=== PATIENT | female | born 1960 | race Caucasian/White ===

== ENCOUNTER 2016-10-07 03:03 | Emergency (ER) | payer MEDICAID ==
[~2016-10-07] VITALS: Ht 152.4 cm; Wt 81.6 kg
[2016-10-07 03:10] VITALS: BP_SYST 159
[2016-10-07] MEDS: KETOROLAC TROMETHAMINE 60 MG/2 ML VIAL IM ONE ×2 (04:24→05:10)
[2016-10-07] MEDS ORDERED: IBUPROFEN 800 MG TABLET PO ONE (04:45)
[2016-10-07 05:07] VITALS: BP_SYST 142
== END 2016-10-07 05:07 | disposition home or self-care (01) ==
LOC: SED 03:03
DX: S46.912A Strain of unspecified muscle, fascia and tendon at shoulder and upper arm level, left arm, initial encounter (principal); X58.XXXA Exposure to other specified factors, initial encounter; Y93.89 Activity, other specified; Y99.8 Other external cause status; Y92.89 Other specified places as the place of occurrence of the external cause
CPT/HCPCS: 73030; 99284; J1885

== ENCOUNTER 2017-06-14 16:05 | Inpatient (IN) | payer MEDICAID ==
[2017-06-14] VITALS (8 sets, daily range): BP systolic 91–143
[~2017-06-14] VITALS: Ht 154.9 cm; Wt 83.0 kg
[~2017-06-14 16:05] MED LIST: ALBU2.5V7 INH; BUPR300T46 PO; CARV6.2554 PO; DIVA500T4 PO; LEVA15HF5 INH; METF-509 PO; NICO1PAT11 TP; NICO1PAT23 TD; NICO1PAT25 TP; TRAZ-126 PO
[2017-06-14] MEDS ORDERED: IPRATROPIUM BROM 0.5 MG/2.5 ML VIAL.NEB (ATROVENT) INH ONE (16:30)
[2017-06-14] MEDS ORDERED: KETOROLAC TROMETHAMINE 30 MG VIAL IVP ONE (16:30)
[2017-06-14] MEDS ORDERED: LORazepam 2 MG/ML VIAL (FOR ER USE) IVP ONE (16:30)
[2017-06-14] MEDS ORDERED: LevALBUTEROL HCL 1.25 MG/0.5 ML *CONC.* VIAL.NEB (XOPENEX CONC.) INH ONE (16:30)
[2017-06-14 16:42] LABS: EOSINOPHILS # (AUTO) 0.3 K/uL (0.0-0.4); EOSINOPHILS % (AUTO) 2.4 % (0.0-4.0); HEMATOCRIT 40.6 % (36-48); LYMPHOCYTES # (AUTO) 2.1 K/uL (1.0-5.5); LYMPHOCYTES % (AUTO) 18.9 % (20.5-51.5); MEAN CORPUSCULAR HEMOGLOBIN 29 pg (27-31); MEAN CORPUSCULAR HGB CONC 32 % (32-36); MEAN CORPUSCULAR VOLUME 92 fL (79.0-98.0); MONOCYTES # (AUTO) 0.6 K/uL (0.0-1.0); MONOCYTES % (AUTO) 5.2 % (1.7-9.3); PLATELET COUNT (AUTO) 646 K/uL (130-430); RED BLOOD CELL COUNT(AUTO) 4.42 MIL/uL (4.2-6.2); RED CELL DISTRIBUTION WIDTH 14.4 % (9.0-15.0)
[2017-06-14] MEDS ORDERED: FURO40SO5 PO (16:42)
[2017-06-14] MEDS ORDERED: ONDA8TAB9 PO (16:42)
[2017-06-14] MEDS ORDERED: TRAM50TA92 PO (16:42)
[2017-06-14] MEDS ORDERED: ENAL10TA PO (16:42)
[2017-06-14] MEDS ORDERED: DOXY100T2 PO (16:42)
[2017-06-14 16:46] LABS: BASOPHILS % (AUTO) 0.9 % (0.0-2.0); NEUTROPHILS % (AUTO) 72.6 % (40.0-70.0)
[2017-06-14 16:56] LABS: CALCIUM 9.2 mg/dL (8.4-11.0); CREATININE 1.18 mg/dL (0.55-1.30); POTASSIUM 3.7 mmol/L (3.5-5.1)
[2017-06-14 17:00] LABS: INR 1.2 (0.8-1.2)
[2017-06-14 17:01] LABS: TOTAL BILIRUBIN 0.2 mg/dL (0.0-1.0)
[2017-06-14] MEDS ORDERED: HEPARIN SODIUM,PORCINE 5000 UNITS/ML VIAL IV ONE (18:15)
[2017-06-14] MEDS ORDERED: HEPARIN 25,000 UNITS/D5W 250ML 250 ML IV PRN (18:15)
[2017-06-14] MEDS ORDERED: HEPARIN SODIUM,PORCINE 5000 UNITS/ML VIAL IVP ONE (18:45)
[2017-06-14] MEDS ORDERED: IOHEXOL 350 mgI/mL, 150 ML INFUS..BTL IV ONE (18:46)
[2017-06-14] MEDS ORDERED: traMADol HCL HCL 50 MG TABLET (ULTRAM) PO PRN (20:00)
[2017-06-14] MEDS ORDERED: DEXTROSE 50% JECT 50 ML DISP.SYRIN IVP PRN (20:30)
[2017-06-14] MEDS ORDERED: ACETAMINOPHEN 325 MG TABLET PO PRN (20:30)
[2017-06-14] MEDS: ONDANSETRON 4 MG ODT TAB PO SCH (21:00)
[2017-06-14] MEDS ORDERED: PIPERACILLIN/TAZO 3.375/DEX-IS 50 ML IV ONE (21:00)
[2017-06-14] MEDS ORDERED: IPRATROPIUM/ALBUTEROL SULFATE 3 ML AMPUL.NEB INH ONE (21:00)
[2017-06-14] MEDS ORDERED: CARVEDILOL 6.25 MG TABLET (COREG) PO SCH (21:00)
[2017-06-14] MEDS ORDERED: FUROSEMIDE 20 MG/2 ML VIAL IVP SCH (21:00)
[2017-06-14] MEDS: TEMAZEPAM 15 MG CAPSULE PO PRN (21:08)
[2017-06-14] MEDS: ENALAPRIL MALEATE 10 MG TABLET (VASOTEC) PO SCH (21:09)
[2017-06-14] MEDS ORDERED: PIPERACILLIN/TAZOBACTAM 3.375 GM/VIAL (ZOSYN) IV ONE (21:09)
[2017-06-14] MEDS ORDERED: AZITHROMYCIN 500 MG/VIAL (ZITHROMAX) IV ONE (21:10)
[2017-06-14] MEDS: ONDANSETRON HCL 4 MG/2 ML VIAL IVP PRN (21:11)
[2017-06-14] MEDS: ENOXAPARIN SODIUM 40 MG/0.4 ML SYRINGE SUBCUT SCH (21:12)
[2017-06-14] MEDS: AZITHROMYCIN 500 MG in NS 250 ML IV SCH (21:26)
[2017-06-14] MEDS: INSULIN REGULAR, HUMAN 100 UNITS/ML, 10 ML VIAL (novoLIN R) SUBCUT PRN (21:52)
[2017-06-14] MEDS: IPRATROPIUM/ALBUTEROL SULFATE 3 ML AMPUL.NEB INH PRN (22:42)
[2017-06-15] VITALS (21 sets, daily range): BP systolic 76–147
[2017-06-15] MEDS: IPRATROPIUM/ALBUTEROL SULFATE 3 ML AMPUL.NEB INH PRN (00:53)
[2017-06-15] MEDS: MORPHINE 2 MG/ML INJ. SYRINGE IVP PRN (01:08)
[2017-06-15] MEDS: MORPHINE 4 MG/ML INJ. SYRINGE IVP PRN (03:22)
[2017-06-15] MEDS: PIPERACILLIN/TAZO 3.375/DEX-IS 50 ML IV SCH ×3 (05:17→18:12)
[2017-06-15 06:52] LABS: BASOPHILS # (AUTO) 0.1 K/uL (0.0-0.2); EOSINOPHILS # (AUTO) 0.2 K/uL (0.0-0.4); EOSINOPHILS % (AUTO) 2.4 % (0.0-4.0); HEMATOCRIT 37.9 % (36-48); HEMOGLOBIN 12.2 g/dL (12.0-16.0); LYMPHOCYTES # (AUTO) 1.5 K/uL (1.0-5.5); LYMPHOCYTES % (AUTO) 14.7 % (20.5-51.5); MEAN CORPUSCULAR HEMOGLOBIN 30 pg (27-31); MEAN CORPUSCULAR HGB CONC 32 % (32-36); MEAN CORPUSCULAR VOLUME 93 fL (79.0-98.0); MONOCYTES # (AUTO) 0.7 K/uL (0.0-1.0); MONOCYTES % (AUTO) 7.4 % (1.7-9.3); NEUTROPHILS # (AUTO) 7.5 K/uL (1.8-7.7); NEUTROPHILS % (AUTO) 74.5 % (40.0-70.0); PLATELET COUNT (AUTO) 583 K/uL (130-430); RED BLOOD CELL COUNT(AUTO) 4.09 MIL/uL (4.2-6.2); RED CELL DISTRIBUTION WIDTH 14.5 % (9.0-15.0)
[2017-06-15 06:56] LABS: CALCIUM 8.7 mg/dL (8.4-11.0); CREATININE 1.28 mg/dL (0.55-1.30); POTASSIUM 3.8 mmol/L (3.5-5.1)
[2017-06-15 07:06] LABS: ALBUMIN 2.6 g/dL (3.4-4.8); TOTAL BILIRUBIN 0.2 mg/dL (0.0-1.0)
[2017-06-15] MEDS: IPRATROPIUM/ALBUTEROL SULFATE 3 ML AMPUL.NEB INH SCH ×5 (09:17→23:53)
[2017-06-15] MEDS: CARVEDILOL 12.5 MG TABLET (COREG) PO SCH ×2 (09:40→21:00)
[2017-06-15] MEDS: ENALAPRIL MALEATE 10 MG TABLET (VASOTEC) PO SCH ×2 (09:40→21:00)
[2017-06-15] MEDS: buPROPion HCL 150 MG XL TAB PO SCH ×2 (09:41→09:45)
[2017-06-15] MEDS: ENOXAPARIN SODIUM 40 MG/0.4 ML SYRINGE SUBCUT SCH (09:41)
[2017-06-15] MEDS: ONDANSETRON 4 MG ODT TAB PO SCH ×3 (09:41→21:00)
[2017-06-15] MEDS: FUROSEMIDE 20 MG/2 ML VIAL IVP SCH ×2 (10:23→21:00)
[2017-06-15] MEDS ORDERED: LORazepam 2 MG/ML VIAL IVP ONE (10:45)
[2017-06-15] MEDS ORDERED: ENOXAPARIN SODIUM 40 MG/0.4 ML SYRINGE SUBCUT ONE (15:00)
[2017-06-15] MEDS: AZITHROMYCIN 500 MG in NS 250 ML IV SCH (20:58)
[2017-06-15] MEDS: TEMAZEPAM 15 MG CAPSULE PO PRN (21:04)
[2017-06-15] MEDS ORDERED: LORazepam 2 MG/ML VIAL IM ONE (22:30)
[2017-06-15] MEDS ORDERED: EPINEPHrine JECT 1 MG/10 ML SYR IVP ONE ×3 (22:30→22:42)
[2017-06-15] MEDS ORDERED: SODIUM BICARBONATE 8.4% JECT 50 MEQ/50 ML SYRINGE IVP ONE ×2 (22:33→22:43)
[2017-06-15] MEDS ORDERED: CALCIUM CHLORIDE 1 GM/10 ML DISP.SYRIN (14 mEq Ca++/SYR) IV ONE (22:43)
[2017-06-15 23:13] LABS: BASOPHILS # (AUTO) 0.2 K/uL (0.0-0.2); BASOPHILS % (AUTO) 1.2 % (0.0-2.0); EOSINOPHILS # (AUTO) 0.3 K/uL (0.0-0.4); EOSINOPHILS % (AUTO) 2.5 % (0.0-4.0); HEMATOCRIT 38.5 % (36-48); HEMOGLOBIN 12.1 g/dL (12.0-16.0); LYMPHOCYTES # (AUTO) 5.3 K/uL (1.0-5.5); LYMPHOCYTES % (AUTO) 38.2 % (20.5-51.5); MEAN CORPUSCULAR HEMOGLOBIN 30 pg (27-31); MEAN CORPUSCULAR HGB CONC 32 % (32-36); MEAN CORPUSCULAR VOLUME 95 fL (79.0-98.0); MONOCYTES # (AUTO) 0.5 K/uL (0.0-1.0); MONOCYTES % (AUTO) 3.7 % (1.7-9.3); NEUTROPHILS # (AUTO) 7.6 K/uL (1.8-7.7); NEUTROPHILS % (AUTO) 54.4 % (40.0-70.0); PLATELET COUNT (AUTO) 223 K/uL (130-430); RED BLOOD CELL COUNT(AUTO) 4.05 MIL/uL (4.2-6.2); RED CELL DISTRIBUTION WIDTH 14.9 % (9.0-15.0); WHITE BLOOD COUNT (AUTO) 13.9 K/uL (4.8-10.8)
[2017-06-15 23:23] LABS: CALCIUM 10.2 mg/dL (8.4-11.0); CREATININE 1.66 mg/dL (0.55-1.30); POTASSIUM 4.5 mmol/L (3.5-5.1)
[2017-06-15 23:29] LABS: ALBUMIN 2.3 g/dL (3.4-4.8); TOTAL BILIRUBIN 0.2 mg/dL (0.0-1.0)
[2017-06-15] MEDS: NOREPINEPHRINE 4 MG/4 ML VIAL IV ONE (23:40)
[2017-06-16] VITALS (31 sets, daily range): BP systolic 68–156
[2017-06-16 00:16] LABS: APPEARANCE,SPUN,BODY FLUID CLEAR (CLEAR); BF APPEARANCE UNSPUN CLOUDY (CLEAR); BODY FLUID COLOR RED (LT YELLOW); BODY FLUID SOURCE/ TYPE PLEURAL; SOURCE/TYPE ,BODY FLUID PLEURAL
[2017-06-16 00:18] LABS: RBC, BODY FLUID 145600 /uL; WBC, BODY FLUID 929 /uL
[2017-06-16 00:19] LABS: LYMPHOCYTES, BODY FLUID 90 %; MONOCYTES,BODY FLUID 8 %; NEUTROPHIL, BODY FLUID 2 %
[2017-06-16] MEDS: MORPHINE 4 MG/ML INJ. SYRINGE IVP PRN (00:19)
[2017-06-16 00:29] LABS: BODY FLUID TOTAL VOLUME 1000 mL
[2017-06-16] MEDS: NOREPINEPHRINE 4 MG/4 ML VIAL IV ONE (00:59)
[2017-06-16] MEDS: D5/0.45 NS 1,000 ML IV SCH ×4 (01:00→14:31)
[2017-06-16 01:09] LABS: POTASSIUM 4.6 mmol/L (3.5-5.1)
[2017-06-16 01:10] LABS: ALBUMIN 2.2 g/dL (3.4-4.8); CALCIUM 10.2 mg/dL (8.4-11.0); CREATININE 1.69 mg/dL (0.55-1.30); TOTAL BILIRUBIN 0.2 mg/dL (0.0-1.0)
[2017-06-16 01:11] LABS: THYROID STIMULATING HORMONE 20.83 uIu/mL (0.34-4.82)
[2017-06-16] MEDS ORDERED: LORazepam 2 MG/ML VIAL ONE (01:21)
[2017-06-16] MEDS: PIPERACILLIN/TAZO 3.375/DEX-IS 50 ML IV SCH ×2 (01:27→05:42)
[2017-06-16] MEDS: LORazepam 2 MG/ML VIAL IVP PRN ×2 (03:12→05:42)
[2017-06-16] MEDS: IPRATROPIUM/ALBUTEROL SULFATE 3 ML AMPUL.NEB INH SCH ×5 (05:01→23:34)
[2017-06-16] MEDS ORDERED: NOREPINEPHRINE 4 MG/4 ML VIAL IV ONE (06:15)
[2017-06-16 06:32] LABS: BASOPHILS % (AUTO) 0.1 % (0.0-2.0); EOSINOPHILS # (AUTO) 0.1 K/uL (0.0-0.4); EOSINOPHILS % (AUTO) 0.4 % (0.0-4.0); HEMATOCRIT 38.5 % (36-48); HEMOGLOBIN 12.4 g/dL (12.0-16.0); LYMPHOCYTES # (AUTO) 0.9 K/uL (1.0-5.5); LYMPHOCYTES % (AUTO) 4.5 % (20.5-51.5); MEAN CORPUSCULAR HEMOGLOBIN 29 pg (27-31); MEAN CORPUSCULAR HGB CONC 32 % (32-36); MEAN CORPUSCULAR VOLUME 92 fL (79.0-98.0); MONOCYTES # (AUTO) 0.4 K/uL (0.0-1.0); MONOCYTES % (AUTO) 2.1 % (1.7-9.3); NEUTROPHILS # (AUTO) 19.4 K/uL (1.8-7.7); NEUTROPHILS % (AUTO) 92.9 % (40.0-70.0); PLATELET COUNT (AUTO) 502 K/uL (130-430); RED BLOOD CELL COUNT(AUTO) 4.21 MIL/uL (4.2-6.2); RED CELL DISTRIBUTION WIDTH 14.6 % (9.0-15.0); WHITE BLOOD COUNT (AUTO) 20.8 K/uL (4.8-10.8)
[2017-06-16] MEDS: INSULIN REGULAR, HUMAN 100 UNITS/ML, 10 ML VIAL (novoLIN R) SUBCUT PRN ×4 (06:53→20:57)
[2017-06-16 07:48] LABS: CALCIUM 8.9 mg/dL (8.4-11.0); CREATININE 2.15 mg/dL (0.55-1.30); POTASSIUM 3.2 mmol/L (3.5-5.1)
[2017-06-16 08:11] LABS: ALBUMIN 2.4 g/dL (3.4-4.8); TOTAL BILIRUBIN 0.6 mg/dL (0.0-1.0)
[2017-06-16] MEDS ORDERED: ENOXAPARIN SODIUM 40 MG/0.4 ML SYRINGE SUBCUT SCH (09:00)
[2017-06-16] MEDS: FUROSEMIDE 20 MG/2 ML VIAL IVP SCH ×2 (09:00→20:55)
[2017-06-16] MEDS: ENALAPRIL MALEATE 10 MG TABLET (VASOTEC) PO SCH ×2 (09:00→20:55)
[2017-06-16] MEDS: CARVEDILOL 12.5 MG TABLET (COREG) PO SCH ×2 (09:00→20:55)
[2017-06-16] MEDS: ONDANSETRON 4 MG ODT TAB PO SCH ×3 (09:00→21:00)
[2017-06-16 10:13] LABS: BODY FLUID GLUCOSE 124 mg/dL
[2017-06-16] MEDS ORDERED: POTASSIUM CHLORIDE 40 MEQ in 0.45% NS 250 ML IV ONE (10:15)
[2017-06-16] MEDS ORDERED: POTASSIUM CHLORIDE 40 MEQ, LIDOCAINE JECT 2% PF 100 MG 50 MG in NS 250 ML IV ONE (10:15)
[2017-06-16] MEDS ORDERED: ETOMIDATE 20 MG/ 10 ML VIAL (AMIDATE) IVP ONE (10:40)
[2017-06-16] MEDS ORDERED: ROCURONIUM BROMIDE 10 MG/ML (ZEMURON) IV ONE (10:40)
[2017-06-16 10:59] LABS: BODY FLUID TOTAL PROTEIN 3.9 g/dL
[2017-06-16 11:00] LABS: METHAMPHETAMINES SCREEN,URINE POSITIVE (NEG <=500)
[2017-06-16 11:01] LABS: BARBITURATE, URINE NEGATIVE (NEG <=200); BENZODIAZEPINE, URINE POSITIVE (NEG <=150); CANNABINOID, URINE NEGATIVE (NEG <=50); COCAINE, URINE NEGATIVE (NEG <=150); OPIATE, URINE POSITIVE (NEG <=100); PHENCYCLIDINE SCREEN,URINE NEGATIVE (NEG <=25); UR TRICYCLIC ANTIDEPRESSANTS NEGATIVE (NEG <=300); URINE AMPHETAMINE NEGATIVE (NEG <=500); URINE METHADONE NEGATIVE (NEG <=200); URINE OXYCODONE SCREEN NEGATIVE (NEG <=100); URINE PROPOXYPHENE SCREEN NEGATIVE (NEG <=300)
[2017-06-16] MEDS: POTASSIUM CHLORIDE 40 MEQ in NS 250 ML IV SCH ×2 (13:30→17:10)
[2017-06-16 16:27] LABS: CALCIUM 8.5 mg/dL (8.4-11.0); CREATININE 2.39 mg/dL (0.55-1.30); POTASSIUM 4.3 mmol/L (3.5-5.1)
[2017-06-16] MEDS: MORPHINE 2 MG/ML INJ. SYRINGE IVP PRN (19:13)
[2017-06-16] MEDS: ENOXAPARIN SODIUM 30 MG/0.3 ML SYRINGE SUBCUT SCH (20:56)
[2017-06-16] MEDS: AZITHROMYCIN 500 MG in NS 250 ML IV SCH (21:01)
[2017-06-16] MEDS: NOREPINEPHRINE BITARTRATE 4 MG in NS 246 ML IV PRN (23:31)
[2017-06-17] VITALS (33 sets, daily range): BP systolic 93–150
[2017-06-17] MEDS: D5/0.45 NS 1,000 ML IV SCH ×5 (00:57→18:38)
[2017-06-17] MEDS ORDERED: NOREPINEPHRINE 4 MG/4 ML VIAL IV ONE ×2 (02:11→05:58)
[2017-06-17] MEDS: IPRATROPIUM/ALBUTEROL SULFATE 3 ML AMPUL.NEB INH SCH ×5 (03:29→23:00)
[2017-06-17] MEDS: INSULIN REGULAR, HUMAN 100 UNITS/ML, 10 ML VIAL (novoLIN R) SUBCUT PRN ×3 (06:11→22:32)
[2017-06-17 07:15] LABS: BASOPHILS % (AUTO) 0.1 % (0.0-2.0); EOSINOPHILS # (AUTO) 0.1 K/uL (0.0-0.4); EOSINOPHILS % (AUTO) 0.4 % (0.0-4.0); HEMOGLOBIN 11.3 g/dL (12.0-16.0); LYMPHOCYTES # (AUTO) 1.5 K/uL (1.0-5.5); LYMPHOCYTES % (AUTO) 7.7 % (20.5-51.5); MEAN CORPUSCULAR HEMOGLOBIN 31 pg (27-31); MEAN CORPUSCULAR HGB CONC 33 % (32-36); MEAN CORPUSCULAR VOLUME 92 fL (79.0-98.0); MONOCYTES # (AUTO) 0.9 K/uL (0.0-1.0); MONOCYTES % (AUTO) 4.5 % (1.7-9.3); NEUTROPHILS # (AUTO) 16.9 K/uL (1.8-7.7); NEUTROPHILS % (AUTO) 87.3 % (40.0-70.0); PLATELET COUNT (AUTO) 423 K/uL (130-430); RED CELL DISTRIBUTION WIDTH 14.4 % (9.0-15.0); WHITE BLOOD COUNT (AUTO) 19.4 K/uL (4.8-10.8)
[2017-06-17 07:19] LABS: CREATININE 2.6 mg/dL (0.55-1.30); POTASSIUM 4.1 mmol/L (3.5-5.1)
[2017-06-17 07:36] LABS: TOTAL BILIRUBIN 0.5 mg/dL (0.0-1.0)
[2017-06-17] MEDS: LORazepam 2 MG/ML VIAL IVP PRN ×6 (09:46→20:09)
[2017-06-17] MEDS: ONDANSETRON 4 MG ODT TAB PO SCH ×3 (09:55→22:36)
[2017-06-17] MEDS: ENALAPRIL MALEATE 10 MG TABLET (VASOTEC) PO SCH ×2 (09:56→22:34)
[2017-06-17] MEDS: buPROPion HCL 150 MG XL TAB PO SCH (09:56)
[2017-06-17] MEDS: CARVEDILOL 12.5 MG TABLET (COREG) PO SCH ×2 (09:57→22:34)
[2017-06-17] MEDS: FUROSEMIDE 20 MG/2 ML VIAL IVP SCH ×2 (09:59→22:33)
[2017-06-17] MEDS: MORPHINE 2 MG/ML INJ. SYRINGE IVP PRN ×2 (10:15→15:48)
[2017-06-17] MEDS: NOREPINEPHRINE BITARTRATE 4 MG in NS 246 ML IV PRN ×2 (11:26→18:38)
[2017-06-17 19:31] LABS: CALCIUM 8.2 mg/dL (8.4-11.0); CREATININE 2.42 mg/dL (0.55-1.30); POTASSIUM 4.2 mmol/L (3.5-5.1)
[2017-06-17] MEDS: MORPHINE 4 MG/ML INJ. SYRINGE IVP PRN (20:29)
[2017-06-17] MEDS: ENOXAPARIN SODIUM 30 MG/0.3 ML SYRINGE SUBCUT SCH (22:35)
[2017-06-17] MEDS: AZITHROMYCIN 500 MG in NS 250 ML IV SCH (22:36)
[2017-06-18] VITALS (34 sets, daily range): BP systolic 92–148
[2017-06-18] MEDS: LORazepam 2 MG/ML VIAL IVP PRN ×5 (00:02→20:53)
[2017-06-18] MEDS: NOREPINEPHRINE BITARTRATE 4 MG in NS 246 ML IV PRN ×2 (00:36→10:22)
[2017-06-18] MEDS: D5/0.45 NS 1,000 ML IV SCH ×2 (02:19→08:03)
[2017-06-18] MEDS: IPRATROPIUM/ALBUTEROL SULFATE 3 ML AMPUL.NEB INH SCH ×6 (03:00→22:58)
[2017-06-18 06:39] LABS: BASOPHILS # (AUTO) 0.2 K/uL (0.0-0.2); BASOPHILS % (AUTO) 0.9 % (0.0-2.0); EOSINOPHILS # (AUTO) 0.3 K/uL (0.0-0.4); EOSINOPHILS % (AUTO) 1.5 % (0.0-4.0); HEMATOCRIT 31.7 % (36-48); HEMOGLOBIN 10.4 g/dL (12.0-16.0); LYMPHOCYTES # (AUTO) 1.7 K/uL (1.0-5.5); LYMPHOCYTES % (AUTO) 9.7 % (20.5-51.5); MEAN CORPUSCULAR HEMOGLOBIN 31 pg (27-31); MEAN CORPUSCULAR HGB CONC 33 % (32-36); MEAN CORPUSCULAR VOLUME 92 fL (79.0-98.0); MONOCYTES # (AUTO) 0.7 K/uL (0.0-1.0); MONOCYTES % (AUTO) 4.3 % (1.7-9.3); NEUTROPHILS # (AUTO) 14.2 K/uL (1.8-7.7); NEUTROPHILS % (AUTO) 83.6 % (40.0-70.0); PLATELET COUNT (AUTO) 368 K/uL (130-430); RED BLOOD CELL COUNT(AUTO) 3.43 MIL/uL (4.2-6.2); RED CELL DISTRIBUTION WIDTH 14.4 % (9.0-15.0); WHITE BLOOD COUNT (AUTO) 17.1 K/uL (4.8-10.8)
[2017-06-18 07:01] LABS: ALBUMIN 1.9 g/dL (3.4-4.8); CREATININE 2.35 mg/dL (0.55-1.30); PHOSPHORUS 4.1 mg/dL (2.7-4.5); POTASSIUM 3.9 mmol/L (3.5-5.1); TOTAL BILIRUBIN 0.4 mg/dL (0.0-1.0)
[2017-06-18] MEDS: ENALAPRIL MALEATE 10 MG TABLET (VASOTEC) PO SCH ×2 (08:02→21:00)
[2017-06-18] MEDS: CARVEDILOL 12.5 MG TABLET (COREG) PO SCH ×2 (08:03→21:00)
[2017-06-18] MEDS ORDERED: FUROSEMIDE 20 MG/2 ML VIAL ONE (08:44)
[2017-06-18] MEDS: FUROSEMIDE 20 MG/2 ML VIAL IVP SCH ×2 (08:44→21:44)
[2017-06-18] MEDS: ONDANSETRON 4 MG ODT TAB PO SCH ×3 (08:45→21:00)
[2017-06-18] MEDS ORDERED: FUROSEMIDE 20 MG/2 ML VIAL IVP SCH (13:45)
[2017-06-18] MEDS: NACL 0.9% 1,000 ML IV SCH (14:41)
[2017-06-18] MEDS: MORPHINE 2 MG/ML INJ. SYRINGE IVP PRN (16:49)
[2017-06-18] MEDS: ENOXAPARIN SODIUM 30 MG/0.3 ML SYRINGE SUBCUT SCH (21:43)
[2017-06-18] MEDS: AZITHROMYCIN 500 MG in NS 250 ML IV SCH (21:56)
[2017-06-18] MEDS: MORPHINE 4 MG/ML INJ. SYRINGE IVP PRN (22:34)
[2017-06-18] MEDS: ONDANSETRON HCL 4 MG/2 ML VIAL IVP PRN (22:34)
[2017-06-19] VITALS (31 sets, daily range): BP systolic 106–174
[2017-06-19] MEDS: LORazepam 2 MG/ML VIAL IVP PRN ×6 (02:37→23:29)
[2017-06-19] MEDS: MORPHINE 2 MG/ML INJ. SYRINGE IVP PRN (03:52)
[2017-06-19] MEDS ORDERED: IPRATROPIUM/ALBUTEROL SULFATE 3 ML AMPUL.NEB ONE (04:25)
[2017-06-19] MEDS: IPRATROPIUM/ALBUTEROL SULFATE 3 ML AMPUL.NEB INH SCH ×6 (04:26→23:18)
[2017-06-19 07:12] LABS: BASOPHILS # (AUTO) 0.1 K/uL (0.0-0.2); BASOPHILS % (AUTO) 0.5 % (0.0-2.0); EOSINOPHILS # (AUTO) 0.3 K/uL (0.0-0.4); EOSINOPHILS % (AUTO) 1.8 % (0.0-4.0); HEMATOCRIT 30.2 % (36-48); LYMPHOCYTES # (AUTO) 1.8 K/uL (1.0-5.5); LYMPHOCYTES % (AUTO) 12.2 % (20.5-51.5); MEAN CORPUSCULAR HEMOGLOBIN 30 pg (27-31); MEAN CORPUSCULAR HGB CONC 33 % (32-36); MEAN CORPUSCULAR VOLUME 91 fL (79.0-98.0); MONOCYTES # (AUTO) 0.8 K/uL (0.0-1.0); MONOCYTES % (AUTO) 5.8 % (1.7-9.3); NEUTROPHILS # (AUTO) 11.5 K/uL (1.8-7.7); PLATELET COUNT (AUTO) 289 K/uL (130-430); RED BLOOD CELL COUNT(AUTO) 3.32 MIL/uL (4.2-6.2); RED CELL DISTRIBUTION WIDTH 14.3 % (9.0-15.0); WHITE BLOOD COUNT (AUTO) 14.5 K/uL (4.8-10.8)
[2017-06-19 07:14] LABS: ALBUMIN 1.8 g/dL (3.4-4.8); CALCIUM 8.3 mg/dL (8.4-11.0); CREATININE 2.1 mg/dL (0.55-1.30); POTASSIUM 3.6 mmol/L (3.5-5.1); TOTAL BILIRUBIN 0.4 mg/dL (0.0-1.0)
[2017-06-19] MEDS: ENALAPRIL MALEATE 10 MG TABLET (VASOTEC) PO SCH ×2 (09:04→20:41)
[2017-06-19] MEDS: FUROSEMIDE 20 MG/2 ML VIAL IVP SCH ×2 (09:05→20:40)
[2017-06-19] MEDS: NACL 0.9% 1,000 ML IV SCH (09:05)
[2017-06-19] MEDS: ONDANSETRON 4 MG ODT TAB PO SCH ×3 (09:05→20:41)
[2017-06-19] MEDS ORDERED: CARVEDILOL 12.5 MG TABLET (COREG) ONE (10:08)
[2017-06-19] MEDS: CARVEDILOL 12.5 MG TABLET (COREG) PO SCH ×2 (10:09→20:41)
[2017-06-19 11:38] LABS: NEUTROPHILS % (AUTO) 79.7 % (40.0-70.0)
[2017-06-19] MEDS: ENOXAPARIN SODIUM 30 MG/0.3 ML SYRINGE SUBCUT SCH (20:42)
[2017-06-20] VITALS (33 sets, daily range): BP systolic 115–185
[2017-06-20] MEDS: LORazepam 2 MG/ML VIAL IVP PRN ×5 (00:29→23:39)
[2017-06-20] MEDS: IPRATROPIUM/ALBUTEROL SULFATE 3 ML AMPUL.NEB INH SCH ×6 (03:57→23:15)
[2017-06-20] MEDS: NACL 0.9% 1,000 ML IV SCH (05:52)
[2017-06-20 06:57] LABS: BASOPHILS # (AUTO) 0.1 K/uL (0.0-0.2); BASOPHILS % (AUTO) 0.6 % (0.0-2.0); EOSINOPHILS # (AUTO) 0.5 K/uL (0.0-0.4); EOSINOPHILS % (AUTO) 3.7 % (0.0-4.0); HEMATOCRIT 32.8 % (36-48); HEMOGLOBIN 10.8 g/dL (12.0-16.0); LYMPHOCYTES # (AUTO) 1.3 K/uL (1.0-5.5); LYMPHOCYTES % (AUTO) 10.4 % (20.5-51.5); MEAN CORPUSCULAR HEMOGLOBIN 30 pg (27-31); MEAN CORPUSCULAR HGB CONC 33 % (32-36); MEAN CORPUSCULAR VOLUME 91 fL (79.0-98.0); MONOCYTES # (AUTO) 0.8 K/uL (0.0-1.0); NEUTROPHILS % (AUTO) 79.3 % (40.0-70.0); PLATELET COUNT (AUTO) 343 K/uL (130-430); RED CELL DISTRIBUTION WIDTH 14.6 % (9.0-15.0); WHITE BLOOD COUNT (AUTO) 12.7 K/uL (4.8-10.8)
[2017-06-20 07:03] LABS: CALCIUM 8.9 mg/dL (8.4-11.0); CREATININE 1.95 mg/dL (0.55-1.30); POTASSIUM 3.3 mmol/L (3.5-5.1)
[2017-06-20 07:15] LABS: TOTAL BILIRUBIN 0.3 mg/dL (0.0-1.0)
[2017-06-20] MEDS: ENALAPRIL MALEATE 10 MG TABLET (VASOTEC) PO SCH ×2 (08:55→20:56)
[2017-06-20] MEDS: FUROSEMIDE 20 MG/2 ML VIAL IVP SCH ×2 (08:55→20:55)
[2017-06-20] MEDS: CARVEDILOL 12.5 MG TABLET (COREG) PO SCH ×2 (08:55→20:56)
[2017-06-20] MEDS: ONDANSETRON 4 MG ODT TAB PO SCH ×3 (08:56→21:03)
[2017-06-20] MEDS ORDERED: POTASSIUM CHLORIDE 20 MEQ/PKT PACKET NG ONE (09:45)
[2017-06-20] MEDS ORDERED: POTASSIUM CHLORIDE 20 MEQ/PKT PACKET PO ONE (14:15)
[2017-06-20] MEDS: POTASSIUM CHLORIDE 20 MEQ/PKT PACKET PO SCH (20:54)
[2017-06-20] MEDS: ENOXAPARIN SODIUM 30 MG/0.3 ML SYRINGE SUBCUT SCH (20:55)
[2017-06-20] MEDS: ONDANSETRON HCL 4 MG/2 ML VIAL IVP PRN (21:00)
[2017-06-20] MEDS: MORPHINE 4 MG/ML INJ. SYRINGE IVP PRN (21:16)
[2017-06-20] MEDS ORDERED: ACETAMINOPHEN 650 MG/20.3 ML UDC ONE (22:58)
[2017-06-21] VITALS (31 sets, daily range): BP systolic 73–159
[2017-06-21] MEDS: NACL 0.9% 1,000 ML IV SCH ×2 (01:15→08:12)
[2017-06-21] MEDS: IPRATROPIUM/ALBUTEROL SULFATE 3 ML AMPUL.NEB INH SCH ×6 (03:46→23:20)
[2017-06-21] MEDS: LORazepam 2 MG/ML VIAL IVP PRN ×3 (03:51→20:38)
[2017-06-21] MEDS: ACETAMINOPHEN 650 MG/20.3 ML UDC NG PRN (05:33)
[2017-06-21 05:47] LABS: BASOPHILS # (AUTO) 0.1 K/uL (0.0-0.2); BASOPHILS % (AUTO) 0.6 % (0.0-2.0); EOSINOPHILS # (AUTO) 0.3 K/uL (0.0-0.4); EOSINOPHILS % (AUTO) 2.3 % (0.0-4.0); HEMATOCRIT 30.8 % (36-48); HEMOGLOBIN 9.9 g/dL (12.0-16.0); LYMPHOCYTES # (AUTO) 1.4 K/uL (1.0-5.5); LYMPHOCYTES % (AUTO) 11.4 % (20.5-51.5); MEAN CORPUSCULAR HEMOGLOBIN 29 pg (27-31); MEAN CORPUSCULAR HGB CONC 32 % (32-36); MEAN CORPUSCULAR VOLUME 91 fL (79.0-98.0); MONOCYTES # (AUTO) 0.8 K/uL (0.0-1.0); MONOCYTES % (AUTO) 6.2 % (1.7-9.3); NEUTROPHILS # (AUTO) 9.7 K/uL (1.8-7.7); NEUTROPHILS % (AUTO) 79.5 % (40.0-70.0); PLATELET COUNT (AUTO) 350 K/uL (130-430); RED BLOOD CELL COUNT(AUTO) 3.37 MIL/uL (4.2-6.2); RED CELL DISTRIBUTION WIDTH 14.6 % (9.0-15.0); WHITE BLOOD COUNT (AUTO) 12.3 K/uL (4.8-10.8)
[2017-06-21 05:49] LABS: CALCIUM 7.8 mg/dL (8.4-11.0); CREATININE 1.74 mg/dL (0.55-1.30); PHOSPHORUS 3.4 mg/dL (2.7-4.5); POTASSIUM 3.3 mmol/L (3.5-5.1)
[2017-06-21] MEDS ORDERED: NS 500 ML IV ONE ×2 (06:18→07:45)
[2017-06-21] MEDS ORDERED: NOREPINEPHRINE BITARTRATE 4 MG in NS 246 ML IV PRN (06:30)
[2017-06-21] MEDS: CARVEDILOL 12.5 MG TABLET (COREG) PO SCH ×2 (08:13→20:07)
[2017-06-21] MEDS: ENALAPRIL MALEATE 10 MG TABLET (VASOTEC) PO SCH ×2 (08:13→20:07)
[2017-06-21] MEDS: POTASSIUM CHLORIDE 20 MEQ/PKT PACKET PO SCH (08:13)
[2017-06-21] MEDS: ONDANSETRON 4 MG ODT TAB PO SCH ×3 (08:14→20:07)
[2017-06-21] MEDS: MORPHINE 2 MG/ML INJ. SYRINGE IVP PRN (12:15)
[2017-06-21] MEDS: MORPHINE 4 MG/ML INJ. SYRINGE IVP PRN (13:45)
[2017-06-21] MEDS ORDERED: MENTHOL/ZINC OXIDE 113 GM OINT. TP PRN (17:30)
[2017-06-21] MEDS: MENTHOL/ZINC OXIDE 113 GM OINT. TP SCH ×2 (18:04→20:08)
[2017-06-21] MEDS ORDERED: ETOMIDATE 20 MG/ 10 ML VIAL (AMIDATE) IVP ONE (19:45)
[2017-06-21] MEDS ORDERED: ROCURONIUM BROMIDE 10 MG/ML (ZEMURON) IV ONE (19:45)
[2017-06-21] MEDS: POTASSIUM CHLORIDE 20 MEQ/PKT PACKET NG SCH (20:06)
[2017-06-21] MEDS: ENOXAPARIN SODIUM 30 MG/0.3 ML SYRINGE SUBCUT SCH (20:06)
[2017-06-22] VITALS (33 sets, daily range): BP systolic 110–182
[2017-06-22] MEDS: LORazepam 2 MG/ML VIAL IVP PRN (00:59)
[2017-06-22] MEDS: MORPHINE 4 MG/ML INJ. SYRINGE IVP PRN (02:10)
[2017-06-22] MEDS: IPRATROPIUM/ALBUTEROL SULFATE 3 ML AMPUL.NEB INH SCH ×6 (03:00→23:53)
[2017-06-22 07:06] LABS: BASOPHILS # (AUTO) 0.1 K/uL (0.0-0.2); BASOPHILS % (AUTO) 0.6 % (0.0-2.0); EOSINOPHILS # (AUTO) 0.4 K/uL (0.0-0.4); EOSINOPHILS % (AUTO) 2.6 % (0.0-4.0); HEMATOCRIT 31.8 % (36-48); HEMOGLOBIN 10.5 g/dL (12.0-16.0); LYMPHOCYTES # (AUTO) 1.5 K/uL (1.0-5.5); LYMPHOCYTES % (AUTO) 10.9 % (20.5-51.5); MEAN CORPUSCULAR HEMOGLOBIN 30 pg (27-31); MEAN CORPUSCULAR HGB CONC 33 % (32-36); MEAN CORPUSCULAR VOLUME 92 fL (79.0-98.0); MONOCYTES # (AUTO) 0.6 K/uL (0.0-1.0); MONOCYTES % (AUTO) 4.7 % (1.7-9.3); NEUTROPHILS # (AUTO) 10.9 K/uL (1.8-7.7); NEUTROPHILS % (AUTO) 81.2 % (40.0-70.0); PLATELET COUNT (AUTO) 392 K/uL (130-430); RED BLOOD CELL COUNT(AUTO) 3.47 MIL/uL (4.2-6.2); RED CELL DISTRIBUTION WIDTH 14.5 % (9.0-15.0); WHITE BLOOD COUNT (AUTO) 13.5 K/uL (4.8-10.8)
[2017-06-22 07:15] LABS: CALCIUM 9.1 mg/dL (8.4-11.0); CREATININE 1.68 mg/dL (0.55-1.30); TOTAL BILIRUBIN 0.3 mg/dL (0.0-1.0)
[2017-06-22] MEDS: POTASSIUM CHLORIDE 20 MEQ/PKT PACKET NG SCH ×2 (09:48→21:38)
[2017-06-22] MEDS: ENALAPRIL MALEATE 10 MG TABLET (VASOTEC) PO SCH ×2 (09:49→21:41)
[2017-06-22] MEDS: CARVEDILOL 12.5 MG TABLET (COREG) PO SCH ×2 (09:49→21:00)
[2017-06-22] MEDS: MENTHOL/ZINC OXIDE 113 GM OINT. TP SCH ×4 (09:51→21:43)
[2017-06-22] MEDS: ONDANSETRON 4 MG ODT TAB PO SCH ×3 (09:53→21:00)
[2017-06-22] MEDS ORDERED: D5W 1,000 ML IV SCH (11:15)
[2017-06-22] MEDS ORDERED: LABETALOL 100 MG/ 20ML VIAL ONE (11:29)
[2017-06-22] MEDS ORDERED: D5W IV PRN (11:30)
[2017-06-22] MEDS ORDERED: LABETALOL HCL IV PRN (11:30)
[2017-06-22] MEDS ORDERED: LABETALOL 100 MG/ 20ML VIAL IVP ONE (11:30)
[2017-06-22] MEDS: INSULIN REGULAR, HUMAN 100 UNITS/ML, 10 ML VIAL (novoLIN R) SUBCUT PRN ×3 (12:30→21:51)
[2017-06-22] MEDS: LABETALOL HCL IV PRN ×2 (12:47→18:46)
[2017-06-22] MEDS: D5W IV PRN ×2 (12:47→18:46)
[2017-06-22] MEDS: ACETAMINOPHEN 650 MG/20.3 ML UDC NG PRN (16:23)
[2017-06-22] MEDS: ENOXAPARIN SODIUM 30 MG/0.3 ML SYRINGE SUBCUT SCH (21:40)
[2017-06-22] MEDS: FUROSEMIDE 20 MG/2 ML VIAL IVP SCH (21:41)
[2017-06-23] VITALS (36 sets, daily range): BP systolic 108–163
[2017-06-23] MEDS: ACETAMINOPHEN 650 MG/20.3 ML UDC NG PRN ×2 (02:10→08:45)
[2017-06-23] MEDS: IPRATROPIUM/ALBUTEROL SULFATE 3 ML AMPUL.NEB INH SCH ×6 (03:48→23:45)
[2017-06-23] MEDS: INSULIN REGULAR, HUMAN 100 UNITS/ML, 10 ML VIAL (novoLIN R) SUBCUT PRN ×3 (06:46→22:25)
[2017-06-23] MEDS: LABETALOL HCL IV PRN (06:48)
[2017-06-23] MEDS: D5W IV PRN (06:48)
[2017-06-23 06:51] LABS: BASOPHILS # (AUTO) 0.1 K/uL (0.0-0.2); BASOPHILS % (AUTO) 0.6 % (0.0-2.0); EOSINOPHILS # (AUTO) 0.1 K/uL (0.0-0.4); EOSINOPHILS % (AUTO) 0.5 % (0.0-4.0); HEMATOCRIT 31.7 % (36-48); LYMPHOCYTES # (AUTO) 1.7 K/uL (1.0-5.5); LYMPHOCYTES % (AUTO) 12.8 % (20.5-51.5); MEAN CORPUSCULAR HEMOGLOBIN 29 pg (27-31); MEAN CORPUSCULAR HGB CONC 32 % (32-36); MEAN CORPUSCULAR VOLUME 92 fL (79.0-98.0); MONOCYTES # (AUTO) 0.9 K/uL (0.0-1.0); MONOCYTES % (AUTO) 6.6 % (1.7-9.3); NEUTROPHILS # (AUTO) 10.9 K/uL (1.8-7.7); NEUTROPHILS % (AUTO) 79.5 % (40.0-70.0); PLATELET COUNT (AUTO) 380 K/uL (130-430); RED BLOOD CELL COUNT(AUTO) 3.45 MIL/uL (4.2-6.2); RED CELL DISTRIBUTION WIDTH 14.7 % (9.0-15.0); WHITE BLOOD COUNT (AUTO) 13.7 K/uL (4.8-10.8)
[2017-06-23 07:13] LABS: ALBUMIN 2.1 g/dL (3.4-4.8); CALCIUM 8.9 mg/dL (8.4-11.0); CREATININE 1.71 mg/dL (0.55-1.30); TOTAL BILIRUBIN 0.3 mg/dL (0.0-1.0)
[2017-06-23] MEDS: POTASSIUM CHLORIDE 20 MEQ/PKT PACKET NG SCH ×2 (08:42→21:56)
[2017-06-23] MEDS: FUROSEMIDE 20 MG/2 ML VIAL IVP SCH ×2 (08:42→21:58)
[2017-06-23] MEDS: ENALAPRIL MALEATE 10 MG TABLET (VASOTEC) PO SCH ×2 (08:42→21:56)
[2017-06-23] MEDS: ONDANSETRON 4 MG ODT TAB PO SCH ×3 (08:45→22:56)
[2017-06-23] MEDS: CARVEDILOL 12.5 MG TABLET (COREG) PO SCH ×2 (08:45→22:01)
[2017-06-23] MEDS: MENTHOL/ZINC OXIDE 113 GM OINT. TP SCH ×4 (08:46→21:00)
[2017-06-23] MEDS: ceFAZolin SODIUM 1 GM in D5W 50 ML IV SCH ×2 (11:00→22:00)
[2017-06-23] MEDS: LINEZOLID 300 ML IV SCH ×2 (11:00→21:58)
[2017-06-23] MEDS ORDERED: LOPERAMIDE HCL 2 MG/10 ML UDC GT PRN (11:15)
[2017-06-23] MEDS ORDERED: LOPERAMIDE HCL 2 MG/10 ML UDC GT ONE (11:15)
[2017-06-23] MEDS ORDERED: CLOPIDOGREL BISULFATE 75 MG TABLET PO ONE (12:00)
[2017-06-23] MEDS: D5/0.45 NS 1,000 ML IV SCH ×2 (14:59→21:15)
[2017-06-23] MEDS ORDERED: BALSAM PERU/CASTOR OIL 60 GM OINT...G. TP ONE (20:30)
[2017-06-23] MEDS: ENOXAPARIN SODIUM 30 MG/0.3 ML SYRINGE SUBCUT SCH (22:01)
[2017-06-24] VITALS (32 sets, daily range): BP systolic 109–158
[2017-06-24] MEDS: IPRATROPIUM/ALBUTEROL SULFATE 3 ML AMPUL.NEB INH SCH ×6 (02:18→23:25)
[2017-06-24] MEDS: INSULIN REGULAR, HUMAN 100 UNITS/ML, 10 ML VIAL (novoLIN R) SUBCUT PRN ×3 (07:18→21:29)
[2017-06-24 07:20] LABS: BASOPHILS % (AUTO) 0.3 % (0.0-2.0); EOSINOPHILS # (AUTO) 0.5 K/uL (0.0-0.4); EOSINOPHILS % (AUTO) 4.1 % (0.0-4.0); HEMATOCRIT 32.4 % (36-48); HEMOGLOBIN 10.6 g/dL (12.0-16.0); LYMPHOCYTES # (AUTO) 1.3 K/uL (1.0-5.5); LYMPHOCYTES % (AUTO) 11.7 % (20.5-51.5); MEAN CORPUSCULAR HEMOGLOBIN 30 pg (27-31); MEAN CORPUSCULAR HGB CONC 33 % (32-36); MEAN CORPUSCULAR VOLUME 91 fL (79.0-98.0); MONOCYTES # (AUTO) 0.9 K/uL (0.0-1.0); MONOCYTES % (AUTO) 7.5 % (1.7-9.3); NEUTROPHILS # (AUTO) 8.8 K/uL (1.8-7.7); PLATELET COUNT (AUTO) 374 K/uL (130-430); RED BLOOD CELL COUNT(AUTO) 3.55 MIL/uL (4.2-6.2); RED CELL DISTRIBUTION WIDTH 14.8 % (9.0-15.0); WHITE BLOOD COUNT (AUTO) 11.4 K/uL (4.8-10.8)
[2017-06-24 07:23] LABS: ALBUMIN 2.1 g/dL (3.4-4.8); CALCIUM 9.1 mg/dL (8.4-11.0); CREATININE 1.38 mg/dL (0.55-1.30); PHOSPHORUS 3.6 mg/dL (2.7-4.5); POTASSIUM 3.7 mmol/L (3.5-5.1); TOTAL BILIRUBIN 0.3 mg/dL (0.0-1.0)
[2017-06-24 09:27] LABS: FREE T4 (FREE THYROXINE) 0.7 ng/dL (0.6-1.6)
[2017-06-24] MEDS: FUROSEMIDE 20 MG/2 ML VIAL IVP SCH ×2 (09:29→20:55)
[2017-06-24] MEDS: ceFAZolin SODIUM 1 GM in D5W 50 ML IV SCH ×2 (09:29→21:25)
[2017-06-24] MEDS: ENALAPRIL MALEATE 10 MG TABLET (VASOTEC) PO SCH ×2 (09:30→20:55)
[2017-06-24] MEDS: POTASSIUM CHLORIDE 20 MEQ/PKT PACKET NG SCH ×2 (09:30→20:55)
[2017-06-24] MEDS: CARVEDILOL 12.5 MG TABLET (COREG) PO SCH ×2 (09:31→20:56)
[2017-06-24] MEDS: CLOPIDOGREL BISULFATE 75 MG TABLET PO SCH (09:31)
[2017-06-24] MEDS: MENTHOL/ZINC OXIDE 113 GM OINT. TP SCH ×4 (09:33→20:58)
[2017-06-24] MEDS: BALSAM PERU/CASTOR OIL 60 GM OINT...G. TP SCH (09:33)
[2017-06-24] MEDS: ONDANSETRON 4 MG ODT TAB PO SCH ×3 (09:33→20:57)
[2017-06-24] MEDS: LINEZOLID 300 ML IV SCH ×2 (10:28→20:54)
[2017-06-24] MEDS: LEVOTHYROXINE SODIUM 0.1 MG VIAL IVP SCH (10:30)
[2017-06-24] MEDS: D5/0.45 NS 1,000 ML IV SCH (12:49)
[2017-06-24 13:06] LABS: NEUTROPHILS % (AUTO) 76.4 % (40.0-70.0)
[2017-06-24] MEDS: 0.45% NACL 1,000 ML IV SCH (17:57)
[2017-06-24] MEDS: ENOXAPARIN SODIUM 30 MG/0.3 ML SYRINGE SUBCUT SCH (21:26)
[2017-06-24] MEDS ORDERED: MORPHINE 2 MG/ML INJ. SYRINGE IVP ONE (23:00)
[2017-06-25] VITALS (30 sets, daily range): BP systolic 105–170
[2017-06-25] MEDS: IPRATROPIUM/ALBUTEROL SULFATE 3 ML AMPUL.NEB INH SCH ×6 (03:02→23:29)
[2017-06-25] MEDS: MORPHINE 2 MG/ML INJ. SYRINGE IVP PRN ×2 (05:15→22:41)
[2017-06-25 07:28] LABS: BASOPHILS # (AUTO) 0.1 K/uL (0.0-0.2); BASOPHILS % (AUTO) 0.4 % (0.0-2.0); EOSINOPHILS # (AUTO) 0.7 K/uL (0.0-0.4); EOSINOPHILS % (AUTO) 5.7 % (0.0-4.0); HEMATOCRIT 35.3 % (36-48); HEMOGLOBIN 11.4 g/dL (12.0-16.0); LYMPHOCYTES # (AUTO) 1.2 K/uL (1.0-5.5); LYMPHOCYTES % (AUTO) 9.1 % (20.5-51.5); MEAN CORPUSCULAR HEMOGLOBIN 30 pg (27-31); MEAN CORPUSCULAR HGB CONC 32 % (32-36); MEAN CORPUSCULAR VOLUME 91 fL (79.0-98.0); MONOCYTES # (AUTO) 0.9 K/uL (0.0-1.0); MONOCYTES % (AUTO) 6.8 % (1.7-9.3); PLATELET COUNT (AUTO) 389 K/uL (130-430); RED BLOOD CELL COUNT(AUTO) 3.87 MIL/uL (4.2-6.2); RED CELL DISTRIBUTION WIDTH 14.8 % (9.0-15.0); WHITE BLOOD COUNT (AUTO) 12.9 K/uL (4.8-10.8)
[2017-06-25 07:54] LABS: ALBUMIN 2.3 g/dL (3.4-4.8); CALCIUM 9.3 mg/dL (8.4-11.0); CREATININE 1.14 mg/dL (0.55-1.30); FREE T4 (FREE THYROXINE) 0.8 ng/dL (0.6-1.6); PHOSPHORUS 3.4 mg/dL (2.7-4.5); POTASSIUM 3.4 mmol/L (3.5-5.1); THYROID STIMULATING HORMONE 3.98 uIu/mL (0.34-4.82); TOTAL BILIRUBIN 0.3 mg/dL (0.0-1.0)
[2017-06-25] MEDS: ceFAZolin SODIUM 1 GM in D5W 50 ML IV SCH ×2 (08:23→20:48)
[2017-06-25] MEDS: LINEZOLID 300 ML IV SCH ×2 (09:17→20:48)
[2017-06-25] MEDS: ONDANSETRON 4 MG ODT TAB PO SCH ×3 (09:17→20:53)
[2017-06-25] MEDS: POTASSIUM CHLORIDE 20 MEQ/PKT PACKET NG SCH ×2 (09:17→20:48)
[2017-06-25] MEDS: ENALAPRIL MALEATE 10 MG TABLET (VASOTEC) PO SCH ×2 (09:18→20:50)
[2017-06-25] MEDS: CLOPIDOGREL BISULFATE 75 MG TABLET PO SCH (09:18)
[2017-06-25] MEDS: CARVEDILOL 12.5 MG TABLET (COREG) PO SCH ×2 (09:19→20:50)
[2017-06-25] MEDS: FUROSEMIDE 20 MG/2 ML VIAL IVP SCH ×2 (09:20→20:49)
[2017-06-25] MEDS: LEVOTHYROXINE SODIUM 0.1 MG VIAL IVP SCH (09:20)
[2017-06-25] MEDS: MENTHOL/ZINC OXIDE 113 GM OINT. TP SCH ×4 (09:27→20:52)
[2017-06-25] MEDS: BALSAM PERU/CASTOR OIL 60 GM OINT...G. TP SCH (09:27)
[2017-06-25] MEDS ORDERED: POTASSIUM CHLORIDE 20 MEQ/PKT PACKET PO ONE (11:45)
[2017-06-25] MEDS: INSULIN REGULAR, HUMAN 100 UNITS/ML, 10 ML VIAL (novoLIN R) SUBCUT PRN (12:23)
[2017-06-25] MEDS: 0.45% NACL 1,000 ML IV SCH (12:25)
[2017-06-25] MEDS: ONDANSETRON HCL 4 MG/2 ML VIAL IVP PRN (20:48)
[2017-06-25] MEDS: ENOXAPARIN SODIUM 30 MG/0.3 ML SYRINGE SUBCUT SCH (20:51)
[2017-06-26] VITALS (28 sets, daily range): BP systolic 106–187
[2017-06-26] MEDS: 0.45% NACL 1,000 ML IV SCH (00:25)
[2017-06-26] MEDS: IPRATROPIUM/ALBUTEROL SULFATE 3 ML AMPUL.NEB INH SCH ×6 (03:11→23:35)
[2017-06-26 07:46] LABS: BASOPHILS % (AUTO) 0.3 % (0.0-2.0); EOSINOPHILS # (AUTO) 0.6 K/uL (0.0-0.4); EOSINOPHILS % (AUTO) 4.3 % (0.0-4.0); HEMATOCRIT 35.8 % (36-48); HEMOGLOBIN 11.5 g/dL (12.0-16.0); LYMPHOCYTES # (AUTO) 1.3 K/uL (1.0-5.5); LYMPHOCYTES % (AUTO) 9.8 % (20.5-51.5); MEAN CORPUSCULAR HEMOGLOBIN 30 pg (27-31); MEAN CORPUSCULAR HGB CONC 32 % (32-36); MEAN CORPUSCULAR VOLUME 92 fL (79.0-98.0); MONOCYTES # (AUTO) 0.5 K/uL (0.0-1.0); MONOCYTES % (AUTO) 4.1 % (1.7-9.3); NEUTROPHILS # (AUTO) 10.4 K/uL (1.8-7.7); NEUTROPHILS % (AUTO) 81.5 % (40.0-70.0); PLATELET COUNT (AUTO) 465 K/uL (130-430); RED CELL DISTRIBUTION WIDTH 14.9 % (9.0-15.0); WHITE BLOOD COUNT (AUTO) 12.8 K/uL (4.8-10.8)
[2017-06-26 08:57] LABS: CALCIUM 9.3 mg/dL (8.4-11.0); CREATININE 1.09 mg/dL (0.55-1.30); POTASSIUM 3.8 mmol/L (3.5-5.1)
[2017-06-26] MEDS: CLOPIDOGREL BISULFATE 75 MG TABLET PO SCH (09:00)
[2017-06-26] MEDS: ONDANSETRON 4 MG ODT TAB PO SCH ×3 (09:00→20:11)
[2017-06-26] MEDS: FUROSEMIDE 20 MG/2 ML VIAL IVP SCH ×2 (09:58→20:14)
[2017-06-26] MEDS: POTASSIUM CHLORIDE 20 MEQ/PKT PACKET NG SCH ×2 (09:59→20:11)
[2017-06-26] MEDS: BALSAM PERU/CASTOR OIL 60 GM OINT...G. TP SCH (10:00)
[2017-06-26] MEDS: MENTHOL/ZINC OXIDE 113 GM OINT. TP SCH ×4 (10:01→20:15)
[2017-06-26] MEDS: ENALAPRIL MALEATE 10 MG TABLET (VASOTEC) PO SCH ×2 (13:26→20:11)
[2017-06-26] MEDS: CARVEDILOL 12.5 MG TABLET (COREG) PO SCH ×2 (13:26→20:12)
[2017-06-26] MEDS: LEVOTHYROXINE SODIUM 0.1 MG VIAL IVP SCH (13:55)
[2017-06-26] MEDS: ceFAZolin SODIUM 1 GM in D5W 50 ML IV SCH ×2 (14:30→20:10)
[2017-06-26] MEDS: LINEZOLID 300 ML IV SCH ×2 (15:30→20:10)
[2017-06-26] MEDS: ENOXAPARIN SODIUM 30 MG/0.3 ML SYRINGE SUBCUT SCH (20:11)
[2017-06-27] VITALS (24 sets, daily range): BP systolic 89–164
[2017-06-27] MEDS: IPRATROPIUM/ALBUTEROL SULFATE 3 ML AMPUL.NEB INH SCH ×5 (03:13→23:11)
[2017-06-27] MEDS: 0.45% NACL 1,000 ML IV SCH (06:33)
[2017-06-27 07:26] LABS: BASOPHILS # (AUTO) 0.1 K/uL (0.0-0.2); BASOPHILS % (AUTO) 0.8 % (0.0-2.0); EOSINOPHILS # (AUTO) 0.7 K/uL (0.0-0.4); EOSINOPHILS % (AUTO) 6.1 % (0.0-4.0); HEMATOCRIT 38.2 % (36-48); HEMOGLOBIN 11.7 g/dL (12.0-16.0); LYMPHOCYTES # (AUTO) 1.7 K/uL (1.0-5.5); LYMPHOCYTES % (AUTO) 13.9 % (20.5-51.5); MEAN CORPUSCULAR HEMOGLOBIN 29 pg (27-31); MEAN CORPUSCULAR HGB CONC 31 % (32-36); MEAN CORPUSCULAR VOLUME 93 fL (79.0-98.0); MONOCYTES # (AUTO) 0.6 K/uL (0.0-1.0); MONOCYTES % (AUTO) 5.2 % (1.7-9.3); NEUTROPHILS # (AUTO) 9.2 K/uL (1.8-7.7); PLATELET COUNT (AUTO) 511 K/uL (130-430); RED BLOOD CELL COUNT(AUTO) 4.12 MIL/uL (4.2-6.2); RED CELL DISTRIBUTION WIDTH 14.8 % (9.0-15.0); WHITE BLOOD COUNT (AUTO) 12.3 K/uL (4.8-10.8)
[2017-06-27 07:58] LABS: CALCIUM 9.5 mg/dL (8.4-11.0); CREATININE 1.17 mg/dL (0.55-1.30); POTASSIUM 3.7 mmol/L (3.5-5.1)
[2017-06-27] MEDS: LINEZOLID 300 ML IV SCH ×2 (08:09→22:25)
[2017-06-27] MEDS: ceFAZolin SODIUM 1 GM in D5W 50 ML IV SCH ×2 (08:09→20:24)
[2017-06-27] MEDS: ENALAPRIL MALEATE 10 MG TABLET (VASOTEC) PO SCH ×2 (08:13→20:25)
[2017-06-27] MEDS: POTASSIUM CHLORIDE 20 MEQ/PKT PACKET NG SCH ×2 (08:13→20:24)
[2017-06-27] MEDS: CLOPIDOGREL BISULFATE 75 MG TABLET PO SCH (08:14)
[2017-06-27] MEDS: CARVEDILOL 12.5 MG TABLET (COREG) PO SCH ×2 (08:14→20:24)
[2017-06-27] MEDS: ONDANSETRON 4 MG ODT TAB PO SCH ×3 (08:14→20:31)
[2017-06-27] MEDS: LEVOTHYROXINE SODIUM 0.1 MG VIAL IVP SCH (08:16)
[2017-06-27] MEDS: FUROSEMIDE 20 MG/2 ML VIAL IVP SCH ×2 (08:16→20:23)
[2017-06-27] MEDS: MENTHOL/ZINC OXIDE 113 GM OINT. TP SCH ×4 (08:20→20:26)
[2017-06-27] MEDS: BALSAM PERU/CASTOR OIL 60 GM OINT...G. TP SCH (08:20)
[2017-06-27 08:35] LABS: ALBUMIN 2.5 g/dL (3.4-4.8); TOTAL BILIRUBIN 0.3 mg/dL (0.0-1.0)
[2017-06-27] MEDS: ENOXAPARIN SODIUM 30 MG/0.3 ML SYRINGE SUBCUT SCH (20:22)
[2017-06-28] VITALS (24 sets, daily range): BP systolic 97–146
[2017-06-28] MEDS: IPRATROPIUM/ALBUTEROL SULFATE 3 ML AMPUL.NEB INH SCH ×5 (03:50→19:29)
[2017-06-28 07:34] LABS: BASOPHILS # (AUTO) 0.1 K/uL (0.0-0.2); BASOPHILS % (AUTO) 0.7 % (0.0-2.0); EOSINOPHILS # (AUTO) 0.6 K/uL (0.0-0.4); EOSINOPHILS % (AUTO) 5.4 % (0.0-4.0); HEMATOCRIT 37.3 % (36-48); HEMOGLOBIN 11.9 g/dL (12.0-16.0); LYMPHOCYTES # (AUTO) 1.5 K/uL (1.0-5.5); LYMPHOCYTES % (AUTO) 13.3 % (20.5-51.5); MEAN CORPUSCULAR HEMOGLOBIN 29 pg (27-31); MEAN CORPUSCULAR HGB CONC 32 % (32-36); MEAN CORPUSCULAR VOLUME 92 fL (79.0-98.0); MONOCYTES # (AUTO) 0.6 K/uL (0.0-1.0); MONOCYTES % (AUTO) 4.8 % (1.7-9.3); NEUTROPHILS # (AUTO) 8.8 K/uL (1.8-7.7); NEUTROPHILS % (AUTO) 75.8 % (40.0-70.0); PLATELET COUNT (AUTO) 494 K/uL (130-430); RED BLOOD CELL COUNT(AUTO) 4.05 MIL/uL (4.2-6.2); WHITE BLOOD COUNT (AUTO) 11.6 K/uL (4.8-10.8)
[2017-06-28] MEDS: ceFAZolin SODIUM 1 GM in D5W 50 ML IV SCH ×2 (08:20→20:18)
[2017-06-28] MEDS: CLOPIDOGREL BISULFATE 75 MG TABLET PO SCH (08:21)
[2017-06-28] MEDS: ONDANSETRON 4 MG ODT TAB PO SCH ×3 (08:21→20:20)
[2017-06-28] MEDS: POTASSIUM CHLORIDE 20 MEQ/PKT PACKET NG SCH ×2 (08:21→20:20)
[2017-06-28] MEDS: ENALAPRIL MALEATE 10 MG TABLET (VASOTEC) PO SCH ×2 (08:21→20:21)
[2017-06-28] MEDS: CARVEDILOL 12.5 MG TABLET (COREG) PO SCH ×2 (08:21→20:19)
[2017-06-28] MEDS: FUROSEMIDE 20 MG/2 ML VIAL IVP SCH ×2 (08:25→20:22)
[2017-06-28] MEDS: LEVOTHYROXINE SODIUM 0.1 MG VIAL IVP SCH (08:25)
[2017-06-28] MEDS: BALSAM PERU/CASTOR OIL 60 GM OINT...G. TP SCH (08:26)
[2017-06-28] MEDS: MENTHOL/ZINC OXIDE 113 GM OINT. TP SCH ×4 (08:26→20:23)
[2017-06-28 08:31] LABS: CALCIUM 9.4 mg/dL (8.4-11.0); CREATININE 1.11 mg/dL (0.55-1.30); POTASSIUM 3.8 mmol/L (3.5-5.1)
[2017-06-28] MEDS ORDERED: ALTEPLASE 2 MG VIAL MC ONE (09:30)
[2017-06-28] MEDS: LINEZOLID 300 ML IV SCH ×2 (10:25→20:18)
[2017-06-28] MEDS: MORPHINE 2 MG/ML INJ. SYRINGE IVP PRN ×3 (11:37→22:40)
[2017-06-28] MEDS: INSULIN REGULAR, HUMAN 100 UNITS/ML, 10 ML VIAL (novoLIN R) SUBCUT PRN (11:41)
[2017-06-28] MEDS: 0.45% NACL 1,000 ML IV SCH (13:00)
[2017-06-28] MEDS: ENOXAPARIN SODIUM 30 MG/0.3 ML SYRINGE SUBCUT SCH (20:23)
[2017-06-29] VITALS: BP_SYST 101
[2017-06-29] MEDS: IPRATROPIUM/ALBUTEROL SULFATE 3 ML AMPUL.NEB INH SCH ×6 (00:25→23:36)
[2017-06-29] MEDS: INSULIN REGULAR, HUMAN 100 UNITS/ML, 10 ML VIAL (novoLIN R) SUBCUT PRN ×2 (06:35→11:45)
[2017-06-29 06:54] LABS: BASOPHILS % (AUTO) 0.2 % (0.0-2.0); EOSINOPHILS # (AUTO) 0.5 K/uL (0.0-0.4); EOSINOPHILS % (AUTO) 4.6 % (0.0-4.0); HEMATOCRIT 40.5 % (36-48); HEMOGLOBIN 12.7 g/dL (12.0-16.0); LYMPHOCYTES # (AUTO) 1.5 K/uL (1.0-5.5); LYMPHOCYTES % (AUTO) 13.8 % (20.5-51.5); MEAN CORPUSCULAR HEMOGLOBIN 29 pg (27-31); MEAN CORPUSCULAR HGB CONC 31 % (32-36); MEAN CORPUSCULAR VOLUME 92 fL (79.0-98.0); MONOCYTES # (AUTO) 0.6 K/uL (0.0-1.0); MONOCYTES % (AUTO) 5.7 % (1.7-9.3); NEUTROPHILS # (AUTO) 8.1 K/uL (1.8-7.7); NEUTROPHILS % (AUTO) 75.7 % (40.0-70.0); PLATELET COUNT (AUTO) 501 K/uL (130-430); RED CELL DISTRIBUTION WIDTH 14.5 % (9.0-15.0); WHITE BLOOD COUNT (AUTO) 10.8 K/uL (4.8-10.8)
[2017-06-29 07:19] LABS: CALCIUM 10.3 mg/dL (8.4-11.0); CREATININE 1.12 mg/dL (0.55-1.30); POTASSIUM 4.2 mmol/L (3.5-5.1)
[2017-06-29 08:00] VITALS: BP_SYST 106
[2017-06-29] MEDS: POTASSIUM CHLORIDE 20 MEQ/PKT PACKET NG SCH ×2 (08:44→22:11)
[2017-06-29] MEDS: ceFAZolin SODIUM 1 GM in D5W 50 ML IV SCH ×2 (08:44→22:14)
[2017-06-29] MEDS: LEVOTHYROXINE SODIUM 0.1 MG VIAL IVP SCH (08:45)
[2017-06-29] MEDS: FUROSEMIDE 20 MG/2 ML VIAL IVP SCH ×2 (08:46→22:10)
[2017-06-29] MEDS: ENALAPRIL MALEATE 10 MG TABLET (VASOTEC) PO SCH ×2 (08:46→22:08)
[2017-06-29] MEDS: CLOPIDOGREL BISULFATE 75 MG TABLET PO SCH (08:46)
[2017-06-29] MEDS: CARVEDILOL 12.5 MG TABLET (COREG) PO SCH ×2 (08:47→22:09)
[2017-06-29] MEDS: ONDANSETRON 4 MG ODT TAB PO SCH ×3 (08:47→22:14)
[2017-06-29] MEDS: BALSAM PERU/CASTOR OIL 60 GM OINT...G. TP SCH (08:48)
[2017-06-29] MEDS: MENTHOL/ZINC OXIDE 113 GM OINT. TP SCH ×4 (08:48→21:00)
[2017-06-29] MEDS: LINEZOLID 300 ML IV SCH ×2 (09:38→23:07)
[2017-06-29 12:08] VITALS: BP_SYST 94
[2017-06-29] MEDS: 0.45% NACL 1,000 ML IV SCH (13:25)
[2017-06-29 16:16] VITALS: BP_SYST 102
[2017-06-29 20:00] VITALS: BP_SYST 123
[2017-06-29] MEDS: ENOXAPARIN SODIUM 30 MG/0.3 ML SYRINGE SUBCUT SCH (22:09)
[2017-06-29] MEDS: MORPHINE 2 MG/ML INJ. SYRINGE IVP PRN (22:36)
[2017-06-30 00:55] VITALS: BP_SYST 91
[2017-06-30] MEDS: IPRATROPIUM/ALBUTEROL SULFATE 3 ML AMPUL.NEB INH SCH ×6 (03:53→22:46)
[2017-06-30] MEDS: MORPHINE 2 MG/ML INJ. SYRINGE IVP PRN ×2 (06:10→09:14)
[2017-06-30 08:00] VITALS: BP_SYST 121
[2017-06-30] MEDS: POTASSIUM CHLORIDE 20 MEQ/PKT PACKET NG SCH (09:09)
[2017-06-30] MEDS: CARVEDILOL 12.5 MG TABLET (COREG) PO SCH ×2 (09:10→21:00)
[2017-06-30] MEDS: LINEZOLID 300 ML IV SCH ×2 (09:11→21:56)
[2017-06-30] MEDS: LEVOTHYROXINE SODIUM 0.1 MG VIAL IVP SCH (09:12)
[2017-06-30] MEDS: FUROSEMIDE 20 MG/2 ML VIAL IVP SCH (09:13)
[2017-06-30] MEDS: CLOPIDOGREL BISULFATE 75 MG TABLET PO SCH (09:14)
[2017-06-30] MEDS: ONDANSETRON 4 MG ODT TAB PO SCH ×3 (09:14→21:10)
[2017-06-30] MEDS: ENALAPRIL MALEATE 10 MG TABLET (VASOTEC) PO SCH (09:14)
[2017-06-30] MEDS: BALSAM PERU/CASTOR OIL 60 GM OINT...G. TP SCH (09:15)
[2017-06-30] MEDS: MENTHOL/ZINC OXIDE 113 GM OINT. TP SCH ×4 (09:16→21:12)
[2017-06-30] MEDS: ceFAZolin SODIUM 1 GM in D5W 50 ML IV SCH ×2 (11:38→21:10)
[2017-06-30 12:13] VITALS: BP_SYST 94
[2017-06-30] MEDS: 0.45% NACL 1,000 ML IV SCH (13:00)
[2017-06-30] MEDS ORDERED: MULTIVITAMINS TAB 1 TABLET PO ONE (14:30)
[2017-06-30] MEDS ORDERED: CHOLECALCIFEROL (VITAMIN D3) 2,000 UNIT TABLET PO ONE (14:30)
[2017-06-30] MEDS: LR 1,000 ML IV SCH (14:45)
[2017-06-30] MEDS: traMADol HCL HCL 50 MG TABLET (ULTRAM) PO PRN (15:11)
[2017-06-30 17:00] VITALS: BP_SYST 111
[2017-06-30] MEDS: ACETAMINOPHEN 650 MG/20.3 ML UDC NG PRN (17:56)
[2017-06-30 20:00] VITALS: BP_SYST 99
[2017-06-30] MEDS: MULTIVITAMINS TAB 1 TABLET PO SCH (21:10)
[2017-06-30] MEDS: ENOXAPARIN SODIUM 30 MG/0.3 ML SYRINGE SUBCUT SCH (21:11)
[2017-07-01 01:07] VITALS: BP_SYST 126
[2017-07-01] MEDS: IPRATROPIUM/ALBUTEROL SULFATE 3 ML AMPUL.NEB INH SCH ×6 (03:00→22:53)
[2017-07-01] MEDS: ceFAZolin SODIUM 1 GM in D5W 50 ML IV SCH ×2 (08:51→20:34)
[2017-07-01 08:53] VITALS: BP_SYST 119
[2017-07-01] MEDS: CLOPIDOGREL BISULFATE 75 MG TABLET PO SCH (09:00)
[2017-07-01] MEDS: ENALAPRIL MALEATE 10 MG TABLET (VASOTEC) PO SCH (09:01)
[2017-07-01] MEDS: CARVEDILOL 12.5 MG TABLET (COREG) PO SCH ×2 (09:02→20:37)
[2017-07-01] MEDS: MULTIVITAMINS TAB 1 TABLET PO SCH ×2 (09:02→20:36)
[2017-07-01] MEDS: LEVOTHYROXINE SODIUM 0.1 MG VIAL IVP SCH (09:03)
[2017-07-01] MEDS: traMADol HCL HCL 50 MG TABLET (ULTRAM) PO PRN ×2 (09:03→21:49)
[2017-07-01] MEDS: CHOLECALCIFEROL (VITAMIN D3) 2,000 UNIT TABLET PO SCH (09:03)
[2017-07-01] MEDS: ONDANSETRON 4 MG ODT TAB PO SCH ×3 (09:04→20:36)
[2017-07-01] MEDS: MENTHOL/ZINC OXIDE 113 GM OINT. TP SCH ×4 (09:06→20:54)
[2017-07-01] MEDS: BALSAM PERU/CASTOR OIL 60 GM OINT...G. TP SCH (09:06)
[2017-07-01] MEDS: LR 1,000 ML IV SCH (09:31)
[2017-07-01 09:34] LABS: BASOPHILS # (AUTO) 0.1 K/uL (0.0-0.2); BASOPHILS % (AUTO) 0.6 % (0.0-2.0); EOSINOPHILS # (AUTO) 0.3 K/uL (0.0-0.4); EOSINOPHILS % (AUTO) 3.6 % (0.0-4.0); HEMATOCRIT 40.2 % (36-48); HEMOGLOBIN 12.5 g/dL (12.0-16.0); LYMPHOCYTES # (AUTO) 1.3 K/uL (1.0-5.5); LYMPHOCYTES % (AUTO) 14.9 % (20.5-51.5); MEAN CORPUSCULAR HEMOGLOBIN 28 pg (27-31); MEAN CORPUSCULAR HGB CONC 31 % (32-36); MEAN CORPUSCULAR VOLUME 90 fL (79.0-98.0); MONOCYTES # (AUTO) 0.4 K/uL (0.0-1.0); MONOCYTES % (AUTO) 4.7 % (1.7-9.3); NEUTROPHILS # (AUTO) 6.9 K/uL (1.8-7.7); NEUTROPHILS % (AUTO) 76.2 % (40.0-70.0); PLATELET COUNT (AUTO) 511 K/uL (130-430); RED BLOOD CELL COUNT(AUTO) 4.46 MIL/uL (4.2-6.2); RED CELL DISTRIBUTION WIDTH 14.6 % (9.0-15.0)
[2017-07-01] MEDS: LINEZOLID 300 ML IV SCH ×2 (09:42→21:44)
[2017-07-01 10:09] LABS: CALCIUM 10.2 mg/dL (8.4-11.0); CREATININE 1.16 mg/dL (0.55-1.30)
[2017-07-01 11:41] VITALS: BP_SYST 130
[2017-07-01 15:38] VITALS: BP_SYST 128
[2017-07-01 20:00] VITALS: BP_SYST 111
[2017-07-01] MEDS: ENOXAPARIN SODIUM 30 MG/0.3 ML SYRINGE SUBCUT SCH (20:38)
[2017-07-02 00:30] VITALS: BP_SYST 117
[2017-07-02] MEDS: IPRATROPIUM/ALBUTEROL SULFATE 3 ML AMPUL.NEB INH SCH ×6 (02:15→23:00)
[2017-07-02] MEDS: LR 1,000 ML IV SCH (06:33)
[2017-07-02 08:12] VITALS: BP_SYST 140
[2017-07-02] MEDS: LINEZOLID 300 ML IV SCH ×2 (09:38→22:13)
[2017-07-02] MEDS: LEVOTHYROXINE SODIUM 0.1 MG VIAL IVP SCH (09:38)
[2017-07-02] MEDS: CHOLECALCIFEROL (VITAMIN D3) 2,000 UNIT TABLET PO SCH (09:46)
[2017-07-02] MEDS: ONDANSETRON 4 MG ODT TAB PO SCH ×4 (09:47→22:04)
[2017-07-02] MEDS: CLOPIDOGREL BISULFATE 75 MG TABLET PO SCH (09:47)
[2017-07-02] MEDS: CARVEDILOL 12.5 MG TABLET (COREG) PO SCH ×2 (09:47→22:04)
[2017-07-02] MEDS: traMADol HCL HCL 50 MG TABLET (ULTRAM) PO PRN ×2 (09:48→22:12)
[2017-07-02] MEDS: ENALAPRIL MALEATE 10 MG TABLET (VASOTEC) PO SCH (09:49)
[2017-07-02] MEDS: MENTHOL/ZINC OXIDE 113 GM OINT. TP SCH ×4 (09:49→21:00)
[2017-07-02] MEDS: BALSAM PERU/CASTOR OIL 60 GM OINT...G. TP SCH (09:50)
[2017-07-02] MEDS: MULTIVITAMINS TAB 1 TABLET PO SCH ×2 (09:53→22:04)
[2017-07-02] MEDS: ceFAZolin SODIUM 1 GM in D5W 50 ML IV SCH ×2 (09:57→21:00)
[2017-07-02 12:52] VITALS: BP_SYST 117
[2017-07-02 15:46] VITALS: BP_SYST 135
[2017-07-02] MEDS: ENOXAPARIN SODIUM 30 MG/0.3 ML SYRINGE SUBCUT SCH (22:08)
[2017-07-03] MEDS: IPRATROPIUM/ALBUTEROL SULFATE 3 ML AMPUL.NEB INH SCH ×6 (03:00→23:33)
[2017-07-03 03:57] VITALS: BP_SYST 124
[2017-07-03 08:22] VITALS: BP_SYST 119
[2017-07-03] MEDS: LINEZOLID 300 ML IV SCH ×2 (09:00→21:45)
[2017-07-03] MEDS: CHOLECALCIFEROL (VITAMIN D3) 2,000 UNIT TABLET PO SCH (09:53)
[2017-07-03] MEDS: MULTIVITAMINS TAB 1 TABLET PO SCH ×2 (09:53→21:41)
[2017-07-03] MEDS: MENTHOL/ZINC OXIDE 113 GM OINT. TP SCH ×4 (09:53→21:43)
[2017-07-03] MEDS: LEVOTHYROXINE SODIUM 0.1 MG VIAL IVP SCH (09:53)
[2017-07-03] MEDS: CARVEDILOL 12.5 MG TABLET (COREG) PO SCH ×2 (09:53→21:44)
[2017-07-03] MEDS: ONDANSETRON 4 MG ODT TAB PO SCH ×3 (09:53→21:52)
[2017-07-03] MEDS: ENALAPRIL MALEATE 10 MG TABLET (VASOTEC) PO SCH (09:53)
[2017-07-03] MEDS: ceFAZolin SODIUM 1 GM in D5W 50 ML IV SCH ×2 (09:53→21:45)
[2017-07-03] MEDS: CLOPIDOGREL BISULFATE 75 MG TABLET PO SCH (09:53)
[2017-07-03] MEDS: BALSAM PERU/CASTOR OIL 60 GM OINT...G. TP SCH (09:54)
[2017-07-03] MEDS: traMADol HCL HCL 50 MG TABLET (ULTRAM) PO PRN ×2 (10:02→17:46)
[2017-07-03 15:36] VITALS: BP_SYST 117
[2017-07-03 19:12] VITALS: BP_SYST 120
[2017-07-03] MEDS: ENOXAPARIN SODIUM 30 MG/0.3 ML SYRINGE SUBCUT SCH (21:42)
[2017-07-04] MEDS: IPRATROPIUM/ALBUTEROL SULFATE 3 ML AMPUL.NEB INH SCH ×6 (03:00→23:27)
[2017-07-04 03:16] VITALS: BP_SYST 120
[2017-07-04 07:53] VITALS: BP_SYST 148
[2017-07-04 07:56] LABS: BASOPHILS # (AUTO) 0.1 K/uL (0.0-0.2); BASOPHILS % (AUTO) 0.7 % (0.0-2.0); EOSINOPHILS # (AUTO) 0.3 K/uL (0.0-0.4); EOSINOPHILS % (AUTO) 3.3 % (0.0-4.0); HEMATOCRIT 35.2 % (36-48); HEMOGLOBIN 11.5 g/dL (12.0-16.0); LYMPHOCYTES # (AUTO) 1.9 K/uL (1.0-5.5); LYMPHOCYTES % (AUTO) 20.2 % (20.5-51.5); MEAN CORPUSCULAR HEMOGLOBIN 30 pg (27-31); MEAN CORPUSCULAR HGB CONC 33 % (32-36); MEAN CORPUSCULAR VOLUME 92 fL (79.0-98.0); MONOCYTES # (AUTO) 0.5 K/uL (0.0-1.0); MONOCYTES % (AUTO) 5.4 % (1.7-9.3); NEUTROPHILS # (AUTO) 6.4 K/uL (1.8-7.7); NEUTROPHILS % (AUTO) 70.4 % (40.0-70.0); PLATELET COUNT (AUTO) 423 K/uL (130-430); RED BLOOD CELL COUNT(AUTO) 3.84 MIL/uL (4.2-6.2); RED CELL DISTRIBUTION WIDTH 14.9 % (9.0-15.0); WHITE BLOOD COUNT (AUTO) 9.2 K/uL (4.8-10.8)
[2017-07-04] MEDS: ceFAZolin SODIUM 1 GM in D5W 50 ML IV SCH ×2 (08:10→20:43)
[2017-07-04 08:21] LABS: CALCIUM 9.5 mg/dL (8.4-11.0); CREATININE 0.82 mg/dL (0.55-1.30); POTASSIUM 3.5 mmol/L (3.5-5.1)
[2017-07-04] MEDS: IPRATROPIUM/ALBUTEROL SULFATE 3 ML AMPUL.NEB INH PRN (08:55)
[2017-07-04] MEDS: LINEZOLID 300 ML IV SCH ×2 (09:44→22:00)
[2017-07-04] MEDS: MULTIVITAMINS TAB 1 TABLET PO SCH ×2 (09:45→20:40)
[2017-07-04] MEDS: CLOPIDOGREL BISULFATE 75 MG TABLET PO SCH (09:45)
[2017-07-04] MEDS: LEVOTHYROXINE SODIUM 0.1 MG VIAL IVP SCH (09:45)
[2017-07-04] MEDS: ENALAPRIL MALEATE 10 MG TABLET (VASOTEC) PO SCH (09:45)
[2017-07-04] MEDS: MENTHOL/ZINC OXIDE 113 GM OINT. TP SCH ×4 (09:45→22:01)
[2017-07-04] MEDS: CHOLECALCIFEROL (VITAMIN D3) 2,000 UNIT TABLET PO SCH (09:45)
[2017-07-04] MEDS: BALSAM PERU/CASTOR OIL 60 GM OINT...G. TP SCH (09:46)
[2017-07-04] MEDS: ONDANSETRON 4 MG ODT TAB PO SCH ×3 (09:54→20:40)
[2017-07-04 10:06] VITALS: BP_SYST 148
[2017-07-04 12:00] VITALS: BP_SYST 125
[2017-07-04 16:45] VITALS: BP_SYST 137
[2017-07-04] MEDS: traMADol HCL HCL 50 MG TABLET (ULTRAM) PO PRN (17:00)
[2017-07-04 20:00] VITALS: BP_SYST 125
[2017-07-04] MEDS: ENOXAPARIN SODIUM 30 MG/0.3 ML SYRINGE SUBCUT SCH (20:48)
[2017-07-04] MEDS ORDERED: CARVEDILOL 12.5 MG TABLET (COREG) PO SCH (21:00)
[2017-07-05 01:05] VITALS: BP_SYST 111
[2017-07-05] MEDS: IPRATROPIUM/ALBUTEROL SULFATE 3 ML AMPUL.NEB INH SCH ×6 (03:00→23:00)
[2017-07-05] MEDS: CLOPIDOGREL BISULFATE 75 MG TABLET PO SCH (09:00)
[2017-07-05] MEDS: MULTIVITAMINS TAB 1 TABLET PO SCH ×2 (09:00→21:07)
[2017-07-05] MEDS: CHOLECALCIFEROL (VITAMIN D3) 2,000 UNIT TABLET PO SCH (09:00)
[2017-07-05] MEDS: LINEZOLID 300 ML IV SCH ×2 (09:00→21:07)
[2017-07-05] MEDS: ENALAPRIL MALEATE 10 MG TABLET (VASOTEC) PO SCH (09:00)
[2017-07-05] MEDS: BALSAM PERU/CASTOR OIL 60 GM OINT...G. TP SCH (09:00)
[2017-07-05] MEDS: MENTHOL/ZINC OXIDE 113 GM OINT. TP SCH ×4 (09:00→21:09)
[2017-07-05] MEDS: MEGESTROL ACETATE 400 MG/10 ML UDC PO SCH (09:00)
[2017-07-05] MEDS: ONDANSETRON 4 MG ODT TAB PO SCH ×3 (09:00→21:08)
[2017-07-05] MEDS: LEVOTHYROXINE SODIUM 0.1 MG VIAL IVP SCH (09:00)
[2017-07-05] MEDS: ceFAZolin SODIUM 1 GM in D5W 50 ML IV SCH ×2 (09:00→21:07)
[2017-07-05] MEDS ORDERED: LORazepam 2 MG/ML VIAL IM SCH (10:00)
[2017-07-05] MEDS ORDERED: CARVEDILOL 25 MG TABLET (COREG) PO ONE (11:30)
[2017-07-05] MEDS: LORazepam 2 MG/ML VIAL ONE ×2 (15:29→15:31)
[2017-07-05] MEDS ORDERED: LORazepam 2 MG/ML VIAL IM ONE (15:30)
[2017-07-05 16:40] VITALS: BP_SYST 134
[2017-07-05] MEDS: traMADol HCL HCL 50 MG TABLET (ULTRAM) PO PRN (17:54)
[2017-07-05 20:00] VITALS: BP_SYST 134
[2017-07-05] MEDS: CARVEDILOL 25 MG TABLET (COREG) PO SCH (21:07)
[2017-07-05] MEDS: ENOXAPARIN SODIUM 30 MG/0.3 ML SYRINGE SUBCUT SCH (21:08)
[2017-07-06 01:33] VITALS: BP_SYST 111
[2017-07-06] MEDS: IPRATROPIUM/ALBUTEROL SULFATE 3 ML AMPUL.NEB INH SCH ×6 (03:00→23:00)
[2017-07-06 04:00] VITALS: BP_SYST 120
[2017-07-06 07:14] LABS: BASOPHILS % (AUTO) 0.4 % (0.0-2.0); EOSINOPHILS # (AUTO) 0.4 K/uL (0.0-0.4); EOSINOPHILS % (AUTO) 3.9 % (0.0-4.0); HEMATOCRIT 36.5 % (36-48); LYMPHOCYTES % (AUTO) 19.8 % (20.5-51.5); MEAN CORPUSCULAR HEMOGLOBIN 30 pg (27-31); MEAN CORPUSCULAR HGB CONC 33 % (32-36); MEAN CORPUSCULAR VOLUME 91 fL (79.0-98.0); MONOCYTES # (AUTO) 0.5 K/uL (0.0-1.0); MONOCYTES % (AUTO) 5.5 % (1.7-9.3); NEUTROPHILS % (AUTO) 70.4 % (40.0-70.0); PLATELET COUNT (AUTO) 360 K/uL (130-430); RED BLOOD CELL COUNT(AUTO) 4.01 MIL/uL (4.2-6.2); WHITE BLOOD COUNT (AUTO) 9.9 K/uL (4.8-10.8)
[2017-07-06 07:20] LABS: CALCIUM 9.1 mg/dL (8.4-11.0); CREATININE 1.03 mg/dL (0.55-1.30); POTASSIUM 3.4 mmol/L (3.5-5.1)
[2017-07-06 08:00] VITALS: BP_SYST 137
[2017-07-06] MEDS ORDERED: LORazepam 2 MG/ML VIAL IVP ONE (09:00)
[2017-07-06] MEDS: LEVOTHYROXINE SODIUM 0.1 MG VIAL IVP SCH (09:02)
[2017-07-06] MEDS: CHOLECALCIFEROL (VITAMIN D3) 2,000 UNIT TABLET PO SCH (09:03)
[2017-07-06] MEDS: ENALAPRIL MALEATE 10 MG TABLET (VASOTEC) PO SCH (09:03)
[2017-07-06] MEDS: CLOPIDOGREL BISULFATE 75 MG TABLET PO SCH (09:03)
[2017-07-06] MEDS: MEGESTROL ACETATE 400 MG/10 ML UDC PO SCH (09:03)
[2017-07-06] MEDS: CARVEDILOL 25 MG TABLET (COREG) PO SCH ×2 (09:04→21:08)
[2017-07-06] MEDS: ONDANSETRON 4 MG ODT TAB PO SCH ×3 (09:04→21:07)
[2017-07-06] MEDS: MULTIVITAMINS TAB 1 TABLET PO SCH ×2 (09:04→21:07)
[2017-07-06] MEDS: MENTHOL/ZINC OXIDE 113 GM OINT. TP SCH ×4 (09:08→21:09)
[2017-07-06] MEDS: BALSAM PERU/CASTOR OIL 60 GM OINT...G. TP SCH (09:08)
[2017-07-06] MEDS ORDERED: SPIRONOLACTONE 25 MG TABLET (ALDACTONE) PO ONE (09:45)
[2017-07-06 12:00] VITALS: BP_SYST 150
[2017-07-06] MEDS ORDERED: POTASSIUM CHLORIDE 20 MEQ/PKT PACKET PO ONE (15:45)
[2017-07-06] MEDS: INSULIN REGULAR, HUMAN 100 UNITS/ML, 10 ML VIAL (novoLIN R) SUBCUT PRN (16:56)
[2017-07-06] MEDS: traMADol HCL HCL 50 MG TABLET (ULTRAM) PO PRN (16:58)
[2017-07-06 20:00] VITALS: BP_SYST 128
[2017-07-06] MEDS: ENOXAPARIN SODIUM 30 MG/0.3 ML SYRINGE SUBCUT SCH (21:08)
[2017-07-07 02:37] VITALS: BP_SYST 107
[2017-07-07] MEDS: IPRATROPIUM/ALBUTEROL SULFATE 3 ML AMPUL.NEB INH SCH ×2 (03:00→07:00)
[2017-07-07 07:26] LABS: BASOPHILS % (AUTO) 0.2 % (0.0-2.0); EOSINOPHILS # (AUTO) 0.3 K/uL (0.0-0.4); EOSINOPHILS % (AUTO) 4.9 % (0.0-4.0); HEMATOCRIT 37.8 % (36-48); HEMOGLOBIN 12.2 g/dL (12.0-16.0); LYMPHOCYTES # (AUTO) 2.4 K/uL (1.0-5.5); LYMPHOCYTES % (AUTO) 34.7 % (20.5-51.5); MEAN CORPUSCULAR HEMOGLOBIN 29 pg (27-31); MEAN CORPUSCULAR HGB CONC 32 % (32-36); MEAN CORPUSCULAR VOLUME 91 fL (79.0-98.0); MONOCYTES # (AUTO) 0.6 K/uL (0.0-1.0); MONOCYTES % (AUTO) 8.4 % (1.7-9.3); NEUTROPHILS # (AUTO) 3.7 K/uL (1.8-7.7); NEUTROPHILS % (AUTO) 51.8 % (40.0-70.0); PLATELET COUNT (AUTO) 345 K/uL (130-430); RED BLOOD CELL COUNT(AUTO) 4.17 MIL/uL (4.2-6.2); RED CELL DISTRIBUTION WIDTH 15.3 % (9.0-15.0)
[2017-07-07 07:38] LABS: ALBUMIN 3.1 g/dL (3.4-4.8); CALCIUM 10.4 mg/dL (8.4-11.0); CREATININE 0.83 mg/dL (0.55-1.30); POTASSIUM 3.5 mmol/L (3.5-5.1); TOTAL BILIRUBIN 0.3 mg/dL (0.0-1.0)
[2017-07-07 08:00] VITALS: BP_SYST 141
[2017-07-07] MEDS: CHOLECALCIFEROL (VITAMIN D3) 2,000 UNIT TABLET PO SCH (09:40)
[2017-07-07] MEDS: ONDANSETRON 4 MG ODT TAB PO SCH ×3 (09:40→21:55)
[2017-07-07] MEDS: LEVOTHYROXINE SODIUM 0.1 MG VIAL IVP SCH (09:40)
[2017-07-07] MEDS: CARVEDILOL 25 MG TABLET (COREG) PO SCH ×2 (09:40→21:56)
[2017-07-07] MEDS: ENALAPRIL MALEATE 10 MG TABLET (VASOTEC) PO SCH (09:41)
[2017-07-07] MEDS: SPIRONOLACTONE 25 MG TABLET (ALDACTONE) PO SCH (09:41)
[2017-07-07] MEDS: MULTIVITAMINS TAB 1 TABLET PO SCH ×2 (09:41→21:55)
[2017-07-07] MEDS: MEGESTROL ACETATE 400 MG/10 ML UDC PO SCH (09:41)
[2017-07-07] MEDS: CLOPIDOGREL BISULFATE 75 MG TABLET PO SCH (09:46)
[2017-07-07 12:00] VITALS: BP_SYST 129
[2017-07-07] MEDS: traMADol HCL HCL 50 MG TABLET (ULTRAM) PO PRN ×2 (16:23→22:19)
[2017-07-07] MEDS: MENTHOL/ZINC OXIDE 113 GM OINT. TP SCH ×4 (16:25→22:21)
[2017-07-07] MEDS: BALSAM PERU/CASTOR OIL 60 GM OINT...G. TP SCH (16:25)
[2017-07-07 16:29] VITALS: BP_SYST 130
[2017-07-07 20:00] VITALS: BP_SYST 140
[2017-07-07] MEDS: ENOXAPARIN SODIUM 30 MG/0.3 ML SYRINGE SUBCUT SCH (21:56)
[2017-07-08] MEDS: traMADol HCL HCL 50 MG TABLET (ULTRAM) PO PRN (06:08)
[2017-07-08 08:00] VITALS: BP_SYST 127
[2017-07-08] MEDS: CARVEDILOL 25 MG TABLET (COREG) PO SCH (10:21)
[2017-07-08] MEDS: CLOPIDOGREL BISULFATE 75 MG TABLET PO SCH (10:22)
[2017-07-08] MEDS: MULTIVITAMINS TAB 1 TABLET PO SCH (10:22)
[2017-07-08] MEDS: CHOLECALCIFEROL (VITAMIN D3) 2,000 UNIT TABLET PO SCH (10:22)
[2017-07-08] MEDS: SPIRONOLACTONE 25 MG TABLET (ALDACTONE) PO SCH (10:22)
[2017-07-08] MEDS: ENALAPRIL MALEATE 10 MG TABLET (VASOTEC) PO SCH (10:23)
[2017-07-08] MEDS: MENTHOL/ZINC OXIDE 113 GM OINT. TP SCH (10:31)
[2017-07-08] MEDS: BALSAM PERU/CASTOR OIL 60 GM OINT...G. TP SCH (10:32)
[2017-07-08] MEDS ORDERED: CARV12.548 PO (11:12)
[2017-07-08] MEDS ORDERED: CLOP75TA2 PO (11:13)
[2017-07-08] MEDS ORDERED: ENAL10TA75 PO (11:13)
[2017-07-08] MEDS ORDERED: LEVO25TA58 PO (11:14)
[2017-07-08] MEDS ORDERED: MULT PO (11:14)
[2017-07-08] MEDS ORDERED: SPIR25TA PO (11:15)
[2017-07-08] MEDS ORDERED: CHOL200010 PO (11:16)
[2017-07-08 11:50] VITALS: BP_SYST 125
[2017-07-08 11:55] VITALS: BP_SYST 125
[2017-07-08 13:00] VITALS: BP_SYST 135
[2017-07-09] MEDS ORDERED: LEVOTHYROXINE SODIUM 0.025 MG TABLET PO SCH (07:00)
[2017-07-09] MEDS ORDERED: CARV25TA55 PO (21:09)
[2017-07-09] MEDS ORDERED: GLU500 PO (21:13)
== END 2017-07-08 13:10 | disposition home health service (06) | DRG 720 ==
LOC: SED 16:05 → SIC 17:48 → STU 06-15 20:26 → SIC 06-15 23:23 → STU 06-29 00:30
PROVIDERS: ADMIT Internal Medicine; ATTEND Internal Medicine
PROC: 5A1955Z Respiratory Ventilation, Greater than 96 Consecutive Hours (ICD-10-PCS; principal; 2017-06-15)
PROC: 5A12012 Performance of Cardiac Output, Single, Manual (ICD-10-PCS; 2017-06-15)
PROC: 0W9G3ZZ Drainage of Peritoneal Cavity, Percutaneous Approach (ICD-10-PCS; 2017-06-15)
PROC: 0BH17EZ Insertion of Endotracheal Airway into Trachea, Via Natural or Artificial Opening (ICD-10-PCS; 2017-06-15)
PROC: 05H633Z Insertion of Infusion Device into Left Subclavian Vein, Percutaneous Approach (ICD-10-PCS; 2017-06-16)
PROC: B547ZZA Ultrasonography of Left Subclavian Vein, Guidance (ICD-10-PCS; 2017-06-16)
PROC: 02HV33Z Insertion of Infusion Device into Superior Vena Cava, Percutaneous Approach (ICD-10-PCS; 2017-06-18)
PROC: B548ZZA Ultrasonography of Superior Vena Cava, Guidance (ICD-10-PCS; 2017-06-18)
PROC: 0BH17EZ Insertion of Endotracheal Airway into Trachea, Via Natural or Artificial Opening (ICD-10-PCS; 2017-06-21)
DX: A41.9 Sepsis, unspecified organism (principal); N17.0 Acute kidney failure with tubular necrosis; J96.00 Acute respiratory failure, unspecified whether with hypoxia or hypercapnia; I46.9 Cardiac arrest, cause unspecified; J69.0 Pneumonitis due to inhalation of food and vomit; R65.21 Severe sepsis with septic shock; G92 Toxic encephalopathy; J90 Pleural effusion, not elsewhere classified; G93.1 Anoxic brain damage, not elsewhere classified; E66.01 Morbid (severe) obesity due to excess calories; E87.6 Hypokalemia; D64.9 Anemia, unspecified; E87.0 Hyperosmolality and hypernatremia; L03.114 Cellulitis of left upper limb; I80.8 Phlebitis and thrombophlebitis of other sites; G81.94 Hemiplegia, unspecified affecting left nondominant side; F19.10 Other psychoactive substance abuse, uncomplicated; J44.0 Chronic obstructive pulmonary disease with (acute) lower respiratory infection; I42.0 Dilated cardiomyopathy; N18.4 Chronic kidney disease, stage 4 (severe); E11.22 Type 2 diabetes mellitus with diabetic chronic kidney disease; F15.10 Other stimulant abuse, uncomplicated; F17.210 Nicotine dependence, cigarettes, uncomplicated; I08.1 Rheumatic disorders of both mitral and tricuspid valves; I13.0 Hypertensive heart and chronic kidney disease with heart failure and stage 1 through stage 4 chronic kidney disease, or unspecified chronic kidney disease; I50.9 Heart failure, unspecified; J44.1 Chronic obstructive pulmonary disease with (acute) exacerbation; Z68.34 Body mass index [BMI] 34.0-34.9, adult; Z86.711 Personal history of pulmonary embolism; Z80.3 Family history of malignant neoplasm of breast; Z79.899 Other long term (current) drug therapy
CPT/HCPCS: 32555; 36415; 36600; 70450-TC; 71010; 71045; 71275; 80048; 80053; 80061; 80307; 82140-TC; 82803-TC; 82947-TC; 82962; 83036; 83605; 83735-TC; 83880; 84100-TC; 84157-TC; 84439; 84443-TC; 84484; 85025; 85379; 85610-TC; 85730-TC; 87040-TC; 87070-TC; 87081; 87086; 87116; 87205-TC; 88108; 88305; 89051-TC; 89060-TC; 92610-GN; 92950; 93005; 93880; 93970; 93971; 94002; 94003; 94640; 94760; 95816; 96374; 96375; 97110-GP; 97116-GP; 97530-GP; 99285; C1729; C1751; J0171; J0456; J0690; J1644; J1650; J1815; J1885; J1940; J2020; J2060; J2270; J2405; J2543; J2997; J3480; J3490; J7030; J7050; J7060; J7120; Q0162; Q9967

== ENCOUNTER 2017-07-09 20:03 | Emergency (ER) | payer MEDICAID ==
[~2017-07-09] VITALS: Ht 152.4 cm; Wt 79.4 kg
[~2017-07-09 20:03] MED LIST changes: -ALBU2.5V7 INH; -BUPR300T46 PO; +CARV12.548 PO; -CARV6.2554 PO; +CHOL200010 PO; +CLOP75TA2 PO; -DIVA500T4 PO; +ENAL10TA75 PO; -LEVA15HF5 INH; +LEVO25TA58 PO; -METF-509 PO; +MULT PO; -NICO1PAT11 TP; -NICO1PAT23 TD; -NICO1PAT25 TP; +SPIR25TA PO; -TRAZ-126 PO
[2017-07-09 20:05] VITALS: BP_SYST 134
--- NOTE | 2017-07-09 20:05 | NUR ---
Patient to ER bed 4 to gown for evaluation. Side rails up. Report given to MARY GONZALEZ.
--- NOTE | 2017-07-09 20:10 | NUR ---
Patient to ER via EMS with c/o Chest Pain since 999, today. Per EMS, patient was noted to have tachycardia, and tachypnea. Patient was given NTG 0.4 mg, sl and ASA 325 mg PO in field. Patient to bed 4 to await MD evaluation. Patient on grain receiver showing sinus tachycardia, patient on BP monitor, and pulse oximeter. Patient is awake, alert and oriented, in no acute distress, vital signs stable, respirations even and unlabored, skins warm and dry to touch. Awaiting evaluation by ER MD, will continue to observe and assess.
--- NOTE | 2017-07-09 20:20 | NUR ---
Dr Jacobs at bedside to evaluate patient.
[2017-07-09] MEDS ORDERED: NITROGLYCERIN 1 INCH (GM) OINT. TP ONE (20:24)
[2017-07-09] MEDS ORDERED: MORPHINE 4 MG/ML INJ. SYRINGE IVP ONE (20:24)
[2017-07-09] MEDS ORDERED: MORPHINE 2 MG/ML INJ. SYRINGE ONE (20:47)
[2017-07-09] MEDS ORDERED: CARV25TA55 PO (21:09)
[2017-07-09] MEDS ORDERED: GLU500 PO (21:13)
--- NOTE | 2017-07-09 21:15 | NUR ---
Patient is refusing admit to the hospital, patient states that she just got out of the hospital and just wants to go home. Dr Jacobs notified and will be in to speak with patient.
[2017-07-09 21:17] LABS: BASOPHILS % (AUTO) 0.4 % (0.0-2.0); EOSINOPHILS # (AUTO) 0.3 K/uL (0.0-0.4); EOSINOPHILS % (AUTO) 3.6 % (0.0-4.0); HEMATOCRIT 35.7 % (36-48); HEMOGLOBIN 11.8 g/dL (12.0-16.0); LYMPHOCYTES # (AUTO) 2.3 K/uL (1.0-5.5); MEAN CORPUSCULAR HEMOGLOBIN 30 pg (27-31); MEAN CORPUSCULAR HGB CONC 33 % (32-36); MEAN CORPUSCULAR VOLUME 91 fL (79.0-98.0); MONOCYTES % (AUTO) 11.4 % (1.7-9.3); NEUTROPHILS # (AUTO) 4.8 K/uL (1.8-7.7); NEUTROPHILS % (AUTO) 56.6 % (40.0-70.0); PLATELET COUNT (AUTO) 292 K/uL (130-430); RED BLOOD CELL COUNT(AUTO) 3.95 MIL/uL (4.2-6.2); WHITE BLOOD COUNT (AUTO) 8.4 K/uL (4.8-10.8)
[2017-07-09 21:26] LABS: CALCIUM 9.3 mg/dL (8.4-11.0); CREATININE 0.87 mg/dL (0.55-1.30); POTASSIUM 3.7 mmol/L (3.5-5.1)
[2017-07-09] MEDS ORDERED: INSULIN REGULAR, HUMAN 100 UNITS/ML, 10 ML VIAL (novoLIN R) SUBCUT PRN (21:30)
[2017-07-09] MEDS ORDERED: METOPROLOL TARTRATE 25 MG TABLET PO ONE (21:30)
--- NOTE | 2017-07-09 21:30 | NUR ---
Dr Jacobs at bedside to speak with patient regarding AMA.
[2017-07-09 21:31] LABS: ALBUMIN 3.4 g/dL (3.4-4.8); TOTAL BILIRUBIN 0.2 mg/dL (0.0-1.0)
[2017-07-09 21:35] LABS: INR 1.1 (0.8-1.2); PROTHROMBIN TIME 11.5 SECS (9.5-12.5)
--- NOTE | 2017-07-09 21:45 | NUR ---
Patient signed AMA form, awaiting ride from friend who is on the way. Patient dc'd monitor, and BP monitor. Pulse oximeter removed, and IV dc'd intact-dressing applied, no active bleeding noted.
--- NOTE | 2017-07-09 22:00 | NUR ---
Patient signed out AMA after speaking with lyly Quiroz here to take patient home. Patient escorted out via wheelchair and assisted into car by this RN. Patient/family advised that even though the patient signed AMA, that they were more than welcome to return at any time for any reason.
[2017-07-09 23:17] VITALS: BP_SYST 142
[2017-08-15] MEDS ORDERED: BUPR300T55 PO (04:22)
[2017-08-15] MEDS ORDERED: TRAM50TA92 PO (04:22)
[2017-08-15] MEDS ORDERED: FURO-149 PO (04:22)
[2017-08-15] MEDS ORDERED: CARV6.2554 PO (04:22)
[2017-08-15] MEDS ORDERED: DOXY100T2 PO (04:22)
[2017-08-15] MEDS ORDERED: TRAZ-126 PO (04:22)
== END 2017-07-09 23:17 | disposition left against medical advice (07) ==
LOC: SED 20:03
DX: I20.9 Angina pectoris, unspecified (principal); I11.0 Hypertensive heart disease with heart failure; I50.9 Heart failure, unspecified; J44.9 Chronic obstructive pulmonary disease, unspecified; E11.9 Type 2 diabetes mellitus without complications; Z79.899 Other long term (current) drug therapy
CPT/HCPCS: 36415; 71045; 80053; 83880; 84484; 85025; 85379; 85610; 85730; 93005; 96374; 99285; J2270

== ENCOUNTER 2017-08-19 04:03 | Emergency (ER) | payer MEDICAID ==
[~2017-08-19] VITALS: Ht 152.4 cm; Wt 63.5 kg
[~2017-08-19 04:03] MED LIST changes: +BUPR300T55 PO; -CARV12.548 PO; +CARV6.2554 PO; -CHOL200010 PO; -CLOP75TA2 PO; +DOXY100T2 PO; +FURO-149 PO; +GLU500 PO; -MULT PO; -SPIR25TA PO; +TRAM50TA92 PO; +TRAZ-126 PO
[2017-08-19 04:10] VITALS: BP_SYST 148
--- NOTE | 2017-08-19 04:10 | NUR ---
Patient to ER bed 8 to gown for evaluation. Side rails up. Report given to LISA GALLAGHER.
--- NOTE | 2017-08-19 04:12 | NUR ---
Pt states that she was discharged two days ago at [facility]. Pt states she has had chest pain since discharge and SOB started this morning. Pt has chest pain 02/02. Pain with inspiration and palpation. /10. Non radiating. Pressure like pain. Denies N/V. Pt appears in moderate distress with tachpnea. Pt only able to respnd with four word answers. Bilateral wheeze. Will continue to monitor via senior design engineer. AAOx4.
--- NOTE | 2017-08-19 04:27 | NUR ---
ER Dr. Farley at bedside examining patient.
--- NOTE | 2017-08-19 04:30 | NUR ---
# 18 gauge angiocath placed to R hand. Use of asceptic technique. Opsite placed over site. Blood return noted. Blood for lab drawn from site. Flushed with 10 cc of normal saline. No evidence of infiltration noted. Patient tolerated well.
[2017-08-19] MEDS ORDERED: MAGNESIUM SULFATE 50 ML IV ONE (04:45)
[2017-08-19] MEDS ORDERED: IPRATROPIUM/ALBUTEROL SULFATE 3 ML AMPUL.NEB INH ONE (04:45)
[2017-08-19] MEDS ORDERED: methylPREDNISolone SOD SUCC/PF 62.5 MG/ML VIAL IVP ONE (04:45)
[2017-08-19] MEDS ORDERED: NACL 0.9% 1,000 ML IV ONE (04:45)
[2017-08-19 05:10] LABS: BASOPHILS # (AUTO) 0.2 K/uL (0.0-0.2); BASOPHILS % (AUTO) 1.8 % (0.0-2.0); EOSINOPHILS # (AUTO) 0.2 K/uL (0.0-0.4); HEMATOCRIT 39.7 % (36-48); HEMOGLOBIN 12.8 g/dL (12.0-16.0); LYMPHOCYTES # (AUTO) 1.3 K/uL (1.0-5.5); LYMPHOCYTES % (AUTO) 15.2 % (20.5-51.5); MEAN CORPUSCULAR HEMOGLOBIN 29 pg (27-31); MEAN CORPUSCULAR HGB CONC 32 % (32-36); MEAN CORPUSCULAR VOLUME 90 fL (79.0-98.0); MONOCYTES # (AUTO) 0.6 K/uL (0.0-1.0); MONOCYTES % (AUTO) 7.5 % (1.7-9.3); NEUTROPHILS # (AUTO) 6.1 K/uL (1.8-7.7); NEUTROPHILS % (AUTO) 73.5 % (40.0-70.0); PLATELET COUNT (AUTO) 352 K/uL (130-430); RED BLOOD CELL COUNT(AUTO) 4.44 MIL/uL (4.2-6.2); RED CELL DISTRIBUTION WIDTH 16.5 % (9.0-15.0); WHITE BLOOD COUNT (AUTO) 8.4 K/uL (4.8-10.8)
[2017-08-19 05:36] LABS: BARBITURATE, URINE NEGATIVE (NEG <=200); BENZODIAZEPINE, URINE NEGATIVE (NEG <=150); CANNABINOID, URINE NEGATIVE (NEG <=50); COCAINE, URINE NEGATIVE (NEG <=150); METHAMPHETAMINES SCREEN,URINE NEGATIVE (NEG <=500); OPIATE, URINE NEGATIVE (NEG <=100); PHENCYCLIDINE SCREEN,URINE NEGATIVE (NEG <=25); UR TRICYCLIC ANTIDEPRESSANTS NEGATIVE (NEG <=300); URINE AMPHETAMINE NEGATIVE (NEG <=500); URINE METHADONE NEGATIVE (NEG <=200); URINE OXYCODONE SCREEN NEGATIVE (NEG <=100); URINE PROPOXYPHENE SCREEN NEGATIVE (NEG <=300)
[2017-08-19 05:43] LABS: CALCIUM 8.8 mg/dL (8.4-11.0)
[2017-08-19 05:44] LABS: ALBUMIN 3.5 g/dL (3.4-4.8); CREATININE 0.97 mg/dL (0.55-1.30); TOTAL BILIRUBIN 0.4 mg/dL (0.0-1.0)
[2017-08-19] MEDS ORDERED: POTASSIUM CHLORIDE 20 MEQ TAB.PRT.SR PO ONE (06:00)
[2017-08-19 07:02] VITALS: BP_SYST 132
--- NOTE | 2017-08-19 07:02 | NUR ---
Patient given written and verbal discharge instructions and verbalizes understanding. ER MD discussed with patient the results and treatment provided. Patient in stable condition. ID arm band removed. IV catheter removed intact and dressing applied, no active bleeding. Rx of atrovent and prednisone given. Patient educated on pain management and to follow up with PMD. Pain Scale 0/10. Opportunity for questions provided and answered. Medication side effect fact sheet provided.
== END 2017-08-19 07:02 | disposition home or self-care (01) ==
LOC: SED 04:03
DX: J44.1 Chronic obstructive pulmonary disease with (acute) exacerbation (principal); I11.0 Hypertensive heart disease with heart failure; I50.9 Heart failure, unspecified; E11.9 Type 2 diabetes mellitus without complications; Z79.899 Other long term (current) drug therapy; Z91.018 Allergy to other foods
CPT/HCPCS: 36415; 80053; 80307; 83880; 84484; 85025; 93005; 94640; 96365; 96366; 96375; 99285; J2930; J3475; J7030

== ENCOUNTER 2017-08-21 12:35 | Emergency (ER) | payer MEDICAID ==
[~2017-08-21] VITALS: Ht 152.4 cm; Wt 68.0 kg
[2017-08-21 12:38] VITALS: BP_SYST 155
[2017-08-21 15:14] VITALS: BP_SYST 124
== END 2017-08-21 15:15 | disposition home or self-care (01) ==
LOC: SED 12:35
DX: R07.9 Chest pain, unspecified (principal); R06.02 Shortness of breath; J44.9 Chronic obstructive pulmonary disease, unspecified; E11.9 Type 2 diabetes mellitus without complications; I11.0 Hypertensive heart disease with heart failure; I50.9 Heart failure, unspecified; Z79.4 Long term (current) use of insulin; Z79.899 Other long term (current) drug therapy; Z91.018 Allergy to other foods
CPT/HCPCS: 71045; 99283

== ENCOUNTER 2017-10-10 00:11 | Inpatient (IN) | payer MEDICAID ==
[2017-10-10] VITALS (12 sets, daily range): BP systolic 80–159
[~2017-10-10] VITALS: Ht 157.5 cm; Wt 75.3 kg
[2017-10-10] MEDS ORDERED: NITROGLYCERIN 1 INCH (GM) OINT. TD ONE (01:45)
[2017-10-10] MEDS ORDERED: FUROSEMIDE 40 MG/4 ML VIAL IVP ONE (01:45)
[2017-10-10 02:20] LABS: BASOPHILS % (AUTO) 0.4 % (0.0-2.0); EOSINOPHILS % (AUTO) 0.4 % (0.0-4.0); HEMATOCRIT 39.6 % (36-48); HEMOGLOBIN 12.9 g/dL (12.0-16.0); LYMPHOCYTES % (AUTO) 17.3 % (20.5-51.5); MEAN CORPUSCULAR HEMOGLOBIN 29 pg (27-31); MEAN CORPUSCULAR HGB CONC 33 % (32-36); MEAN CORPUSCULAR VOLUME 90 fL (79.0-98.0); MONOCYTES # (AUTO) 0.7 K/uL (0.0-1.0); MONOCYTES % (AUTO) 6.2 % (1.7-9.3); NEUTROPHILS # (AUTO) 8.7 K/uL (1.8-7.7); NEUTROPHILS % (AUTO) 75.7 % (40.0-70.0); PLATELET COUNT (AUTO) 281 K/uL (130-430); RED BLOOD CELL COUNT(AUTO) 4.42 MIL/uL (4.2-6.2); RED CELL DISTRIBUTION WIDTH 15.2 % (9.0-15.0); WHITE BLOOD COUNT (AUTO) 11.4 K/uL (4.8-10.8)
[2017-10-10 02:25] LABS: CALCIUM 9.3 mg/dL (8.4-11.0); CREATININE 0.94 mg/dL (0.55-1.30); POTASSIUM 3.4 mmol/L (3.5-5.1)
[2017-10-10 02:26] LABS: INR 1.1 (0.8-1.2); PROTHROMBIN TIME 11.3 SECS (9.5-12.5)
[2017-10-10 02:27] LABS: ALBUMIN 3.4 g/dL (3.4-4.8); TOTAL BILIRUBIN 1.1 mg/dL (0.0-1.0)
[2017-10-10] MEDS ORDERED: ASPIRIN 81 MG TAB.CHEW PO ONE (02:45)
[2017-10-10] MEDS ORDERED: DEXTROSE 50% JECT 50 ML DISP.SYRIN IVP PRN (05:00)
[2017-10-10] MEDS ORDERED: traMADol HCL HCL 50 MG TABLET (ULTRAM) PO PRN (05:00)
[2017-10-10] MEDS: LEVOTHYROXINE SODIUM 0.025 MG TABLET PO SCH (06:11)
[2017-10-10] MEDS: IPRATROPIUM BROM 0.5 MG/2.5 ML VIAL.NEB (ATROVENT) INH SCH ×5 (07:00→23:00)
[2017-10-10] MEDS: ALBUTEROL SULFATE 0.083% 2.5 MG/3 ML VIAL.NEB INH SCH ×5 (07:00→23:00)
[2017-10-10] MEDS: FUROSEMIDE 40 MG/4 ML VIAL IVP SCH ×2 (08:52→21:00)
[2017-10-10] MEDS: CARVEDILOL 6.25 MG TABLET (COREG) PO SCH ×2 (08:59→21:00)
[2017-10-10] MEDS: buPROPion HCL 150 MG XL TAB PO SCH (09:00)
[2017-10-10] MEDS: ENALAPRIL MALEATE 10 MG TABLET (VASOTEC) PO SCH ×2 (09:02→21:00)
[2017-10-10] MEDS ORDERED: MORPHINE 4 MG/ML INJ. SYRINGE IVP PRN (10:30)
[2017-10-10] MEDS: ONDANSETRON HCL 4 MG/2 ML VIAL IVP PRN ×2 (10:38→20:14)
[2017-10-10] MEDS: INSULIN REGULAR, HUMAN 100 UNITS/ML, 10 ML VIAL (novoLIN R) SUBCUT PRN ×2 (11:35→17:05)
[2017-10-10] MEDS ORDERED: NS 250 ML IV ONE (21:45)
[2017-10-10] MEDS ORDERED: METOCLOPRAMIDE HCL 10 MG/2 ML VIAL IVP PRN (21:45)
[2017-10-10] MEDS ORDERED: MORPHINE 4 MG/ML INJ. SYRINGE ONE ×2 (22:08→22:33)
[2017-10-10] MEDS: MORPHINE 2 MG/ML INJ. SYRINGE IVP PRN (22:34)
[2017-10-11] VITALS (24 sets, daily range): BP systolic 77–125
[2017-10-11] MEDS ORDERED: MORPHINE 4 MG/ML INJ. SYRINGE ONE ×2 (02:34→07:27)
[2017-10-11] MEDS: MORPHINE 2 MG/ML INJ. SYRINGE IVP PRN (02:34)
[2017-10-11] MEDS: IPRATROPIUM BROM 0.5 MG/2.5 ML VIAL.NEB (ATROVENT) INH PRN (02:44)
[2017-10-11] MEDS: ALBUTEROL SULFATE 0.083% 2.5 MG/3 ML VIAL.NEB INH PRN (02:45)
[2017-10-11] MEDS: IPRATROPIUM BROM 0.5 MG/2.5 ML VIAL.NEB (ATROVENT) INH SCH ×5 (03:00→19:12)
[2017-10-11] MEDS: ALBUTEROL SULFATE 0.083% 2.5 MG/3 ML VIAL.NEB INH SCH ×4 (03:00→14:52)
[2017-10-11] MEDS: INSULIN REGULAR, HUMAN 100 UNITS/ML, 10 ML VIAL (novoLIN R) SUBCUT PRN (06:54)
[2017-10-11] MEDS: LEVOTHYROXINE SODIUM 0.025 MG TABLET PO SCH (07:00)
[2017-10-11] MEDS: MORPHINE 4 MG/ML INJ. SYRINGE IVP PRN ×2 (07:28→15:21)
[2017-10-11] MEDS: buPROPion HCL 150 MG XL TAB PO SCH (08:42)
[2017-10-11] MEDS: ENALAPRIL MALEATE 10 MG TABLET (VASOTEC) PO SCH ×2 (08:43→20:46)
[2017-10-11] MEDS: CARVEDILOL 6.25 MG TABLET (COREG) PO SCH ×2 (08:43→20:46)
[2017-10-11] MEDS: FUROSEMIDE 40 MG/4 ML VIAL IVP SCH (08:44)
[2017-10-11] MEDS: HYDROcodone/ACETAMIN 10-325 MG TAB PO PRN ×2 (09:58→18:07)
[2017-10-11 10:50] LABS: CREATININE 1.59 mg/dL (0.55-1.30); POTASSIUM 4.7 mmol/L (3.5-5.1)
[2017-10-11 11:08] LABS: TOTAL BILIRUBIN 1.6 mg/dL (0.0-1.0)
[2017-10-11] MEDS ORDERED: NOREPINEPHRINE 4 MG/4 ML VIAL IV ONE (11:48)
[2017-10-11] MEDS ORDERED: NOREPINEPHRINE BITARTRATE 4 MG in D5W 246 ML IV PRN (12:15)
[2017-10-11 12:38] LABS: INR 1.3 (0.8-1.2); PROTHROMBIN TIME 13.4 SECS (9.5-12.5)
[2017-10-11] MEDS ORDERED: NS 500 ML IV ONE (12:45)
[2017-10-11 16:01] LABS: BARBITURATE, URINE NEGATIVE (NEG <=200); BENZODIAZEPINE, URINE NEGATIVE (NEG <=150); CANNABINOID, URINE NEGATIVE (NEG <=50); COCAINE, URINE NEGATIVE (NEG <=150); METHAMPHETAMINES SCREEN,URINE POSITIVE (NEG <=500); OPIATE, URINE POSITIVE (NEG <=100); PHENCYCLIDINE SCREEN,URINE NEGATIVE (NEG <=25); UR TRICYCLIC ANTIDEPRESSANTS NEGATIVE (NEG <=300); URINE AMPHETAMINE POSITIVE (NEG <=500); URINE METHADONE NEGATIVE (NEG <=200); URINE OXYCODONE SCREEN NEGATIVE (NEG <=100); URINE PROPOXYPHENE SCREEN NEGATIVE (NEG <=300)
[2017-10-11] MEDS ORDERED: PANTOPRAZOLE SODIUM 40 MG TAB PO ONE (17:30)
[2017-10-11] MEDS ORDERED: methylPREDNISolone SOD SUCC 40 MG/ML VIAL ONE (17:34)
[2017-10-11] MEDS ORDERED: methylPREDNISolone SOD SUCC 40 MG/ML VIAL IVP ONE (17:45)
[2017-10-11] MEDS: guaiFENesin 200 MG/CODEINE 20 MG/ 10 ML UDC PO PRN (18:06)
[2017-10-11] MEDS: PIPERACILLIN/TAZO 2.25G/DEX-IS 50 ML IV SCH ×2 (18:32→23:32)
[2017-10-11] MEDS: LevALBUTEROL HCL 1.25 MG/0.5 ML *CONC.* VIAL.NEB (XOPENEX CONC.) INH SCH (19:11)
[2017-10-11] MEDS: HEPARIN SODIUM,PORCINE 5000 UNITS/ML VIAL SUBCUT SCH (20:47)
[2017-10-12] VITALS (24 sets, daily range): BP systolic 91–138
[2017-10-12] MEDS: IPRATROPIUM BROM 0.5 MG/2.5 ML VIAL.NEB (ATROVENT) INH SCH ×4 (00:36→19:00)
[2017-10-12] MEDS: LevALBUTEROL HCL 1.25 MG/0.5 ML *CONC.* VIAL.NEB (XOPENEX CONC.) INH SCH ×4 (00:37→19:00)
[2017-10-12] MEDS: HYDROcodone/ACETAMIN 10-325 MG TAB PO PRN ×3 (03:02→22:00)
[2017-10-12] MEDS: guaiFENesin 200 MG/CODEINE 20 MG/ 10 ML UDC PO PRN ×4 (03:03→22:05)
[2017-10-12] MEDS: methylPREDNISolone SOD SUCC 40 MG/ML VIAL IVP SCH ×3 (06:00→21:16)
[2017-10-12] MEDS: LEVOTHYROXINE SODIUM 0.025 MG TABLET PO SCH ×2 (06:00→07:00)
[2017-10-12] MEDS: PIPERACILLIN/TAZO 2.25G/DEX-IS 50 ML IV SCH ×3 (06:01→17:42)
[2017-10-12 06:02] LABS: BASOPHILS % (AUTO) 0.2 % (0.0-2.0); HEMATOCRIT 35.9 % (36-48); HEMOGLOBIN 11.6 g/dL (12.0-16.0); LYMPHOCYTES # (AUTO) 0.9 K/uL (1.0-5.5); LYMPHOCYTES % (AUTO) 3.9 % (20.5-51.5); MEAN CORPUSCULAR HEMOGLOBIN 29 pg (27-31); MEAN CORPUSCULAR HGB CONC 32 % (32-36); MEAN CORPUSCULAR VOLUME 91 fL (79.0-98.0); MONOCYTES # (AUTO) 0.9 K/uL (0.0-1.0); NEUTROPHILS # (AUTO) 20.4 K/uL (1.8-7.7); PLATELET COUNT (AUTO) 219 K/uL (130-430); RED BLOOD CELL COUNT(AUTO) 3.95 MIL/uL (4.2-6.2); RED CELL DISTRIBUTION WIDTH 15.8 % (9.0-15.0); WHITE BLOOD COUNT (AUTO) 22.2 K/uL (4.8-10.8)
[2017-10-12] MEDS: INSULIN REGULAR, HUMAN 100 UNITS/ML, 10 ML VIAL (novoLIN R) SUBCUT PRN ×3 (06:02→17:47)
[2017-10-12 06:45] LABS: CALCIUM 8.6 mg/dL (8.4-11.0); CREATININE 1.72 mg/dL (0.55-1.30)
[2017-10-12 06:56] LABS: ALBUMIN 2.7 g/dL (3.4-4.8); TOTAL BILIRUBIN 1.2 mg/dL (0.0-1.0)
[2017-10-12] MEDS: buPROPion HCL 150 MG XL TAB PO SCH (09:04)
[2017-10-12] MEDS: CARVEDILOL 6.25 MG TABLET (COREG) PO SCH ×2 (09:04→21:00)
[2017-10-12] MEDS: PANTOPRAZOLE SODIUM 40 MG TAB PO SCH (09:05)
[2017-10-12] MEDS: ENALAPRIL MALEATE 10 MG TABLET (VASOTEC) PO SCH ×2 (09:05→21:00)
[2017-10-12] MEDS: HEPARIN SODIUM,PORCINE 5000 UNITS/ML VIAL SUBCUT SCH ×2 (09:07→21:20)
[2017-10-12 10:45] LABS: BILIRUBIN,URINE NEGATIVE (NEGATIVE); BLOOD, URINE NEGATIVE (NEGATIVE); CLARITY/URINE CLEAR (CLEAR); COLOR,URINE YELLOW (YELLOW); GLUCOSE,URINE NEGATIVE (NEGATIVE); KETONES,URINE NEGATIVE (NEGATIVE); LEUKOCYTE ESTERASE ,URINE NEGATIVE (NEGATIVE); NITRITE, URINE NEGATIVE (NEGATIVE); PH,URINE 5.5 (5.0-8.0); PROTEIN URINE NEGATIVE (NEGATIVE); UROBILINOGEN,URINE 0.2 (0.2-1.0)
[2017-10-12 11:50] LABS: NEUTROPHILS % (AUTO) 91.9 % (40.0-70.0)
[2017-10-12] MEDS: ALBUTEROL SULFATE 0.083% 2.5 MG/3 ML VIAL.NEB INH PRN (22:15)
[2017-10-12] MEDS: IPRATROPIUM BROM 0.5 MG/2.5 ML VIAL.NEB (ATROVENT) INH PRN (22:15)
[2017-10-13] VITALS (24 sets, daily range): BP systolic 96–136
[2017-10-13] MEDS: PIPERACILLIN/TAZO 2.25G/DEX-IS 50 ML IV SCH ×5 (00:12→23:28)
[2017-10-13] MEDS: IPRATROPIUM BROM 0.5 MG/2.5 ML VIAL.NEB (ATROVENT) INH SCH ×5 (01:00→19:51)
[2017-10-13] MEDS: LevALBUTEROL HCL 1.25 MG/0.5 ML *CONC.* VIAL.NEB (XOPENEX CONC.) INH SCH ×5 (01:00→19:51)
[2017-10-13] MEDS: MORPHINE 4 MG/ML INJ. SYRINGE IVP PRN ×3 (02:18→16:03)
[2017-10-13] MEDS: methylPREDNISolone SOD SUCC 40 MG/ML VIAL IVP SCH ×3 (05:35→21:09)
[2017-10-13] MEDS: INSULIN REGULAR, HUMAN 100 UNITS/ML, 10 ML VIAL (novoLIN R) SUBCUT PRN ×3 (05:42→23:30)
[2017-10-13 06:30] LABS: ALBUMIN 2.5 g/dL (3.4-4.8); CREATININE 1.77 mg/dL (0.55-1.30); TOTAL BILIRUBIN 0.9 mg/dL (0.0-1.0)
[2017-10-13 06:48] LABS: BASOPHILS % (AUTO) 0.1 % (0.0-2.0); EOSINOPHILS % (AUTO) 0.1 % (0.0-4.0); HEMATOCRIT 35.6 % (36-48); HEMOGLOBIN 11.3 g/dL (12.0-16.0); LYMPHOCYTES # (AUTO) 0.5 K/uL (1.0-5.5); LYMPHOCYTES % (AUTO) 2.2 % (20.5-51.5); MEAN CORPUSCULAR HEMOGLOBIN 29 pg (27-31); MEAN CORPUSCULAR HGB CONC 32 % (32-36); MEAN CORPUSCULAR VOLUME 90 fL (79.0-98.0); MONOCYTES # (AUTO) 0.8 K/uL (0.0-1.0); MONOCYTES % (AUTO) 3.4 % (1.7-9.3); NEUTROPHILS # (AUTO) 22.4 K/uL (1.8-7.7); NEUTROPHILS % (AUTO) 94.2 % (40.0-70.0); PLATELET COUNT (AUTO) 217 K/uL (130-430); RED BLOOD CELL COUNT(AUTO) 3.97 MIL/uL (4.2-6.2); RED CELL DISTRIBUTION WIDTH 15.2 % (9.0-15.0); WHITE BLOOD COUNT (AUTO) 23.7 K/uL (4.8-10.8)
[2017-10-13] MEDS: LEVOTHYROXINE SODIUM 0.025 MG TABLET PO SCH (06:58)
[2017-10-13] MEDS: HEPARIN SODIUM,PORCINE 5000 UNITS/ML VIAL SUBCUT SCH ×2 (09:17→21:20)
[2017-10-13] MEDS: ENALAPRIL MALEATE 10 MG TABLET (VASOTEC) PO SCH ×2 (09:18→21:08)
[2017-10-13] MEDS: CARVEDILOL 6.25 MG TABLET (COREG) PO SCH ×2 (09:19→21:08)
[2017-10-13] MEDS: buPROPion HCL 150 MG XL TAB PO SCH (09:19)
[2017-10-13] MEDS: PANTOPRAZOLE SODIUM 40 MG TAB PO SCH (09:19)
[2017-10-13] MEDS ORDERED: LORazepam 2 MG/ML VIAL IVP ONE (10:30)
[2017-10-13 11:07] LABS: HEPATITIS C VIRUS AB <0.1 s/co ratio (0.0-0.9)
[2017-10-13] MEDS: LORazepam 2 MG/ML VIAL IM PRN (18:12)
[2017-10-13] MEDS: MUPIROCIN 2% TOPICAL OINTMENT 22 GM NS SCH (21:09)
[2017-10-13] MEDS: ZOLPIDEM TARTRATE 5 MG TABLET PO PRN (21:09)
[2017-10-13] MEDS: ACETAMINOPHEN 325 MG TABLET PO PRN (22:32)
[2017-10-14] VITALS (24 sets, daily range): BP systolic 92–132
[2017-10-14] MEDS: IPRATROPIUM BROM 0.5 MG/2.5 ML VIAL.NEB (ATROVENT) INH SCH ×4 (01:00→19:49)
[2017-10-14] MEDS: LevALBUTEROL HCL 1.25 MG/0.5 ML *CONC.* VIAL.NEB (XOPENEX CONC.) INH SCH ×4 (01:00→19:49)
[2017-10-14] MEDS: LORazepam 2 MG/ML VIAL IM PRN (02:40)
[2017-10-14 06:11] LABS: CALCIUM 8.7 mg/dL (8.4-11.0); CREATININE 1.55 mg/dL (0.55-1.30); POTASSIUM 3.7 mmol/L (3.5-5.1)
[2017-10-14] MEDS: LEVOTHYROXINE SODIUM 0.025 MG TABLET PO SCH (06:18)
[2017-10-14 06:19] LABS: ALBUMIN 2.3 g/dL (3.4-4.8); TOTAL BILIRUBIN 0.6 mg/dL (0.0-1.0)
[2017-10-14] MEDS: PIPERACILLIN/TAZO 2.25G/DEX-IS 50 ML IV SCH ×3 (06:19→17:48)
[2017-10-14] MEDS: methylPREDNISolone SOD SUCC 40 MG/ML VIAL IVP SCH ×3 (06:19→21:01)
[2017-10-14 06:22] LABS: HEMATOCRIT 32.9 % (36-48); HEMOGLOBIN 10.5 g/dL (12.0-16.0); LYMPHOCYTES # (AUTO) 0.4 K/uL (1.0-5.5); MEAN CORPUSCULAR HEMOGLOBIN 29 pg (27-31); MEAN CORPUSCULAR HGB CONC 32 % (32-36); MEAN CORPUSCULAR VOLUME 89 fL (79.0-98.0); MONOCYTES # (AUTO) 0.7 K/uL (0.0-1.0); MONOCYTES % (AUTO) 3.6 % (1.7-9.3); NEUTROPHILS # (AUTO) 18.6 K/uL (1.8-7.7); NEUTROPHILS % (AUTO) 94.4 % (40.0-70.0); PLATELET COUNT (AUTO) 237 K/uL (130-430); RED BLOOD CELL COUNT(AUTO) 3.69 MIL/uL (4.2-6.2); RED CELL DISTRIBUTION WIDTH 15.4 % (9.0-15.0); WHITE BLOOD COUNT (AUTO) 19.7 K/uL (4.8-10.8)
[2017-10-14] MEDS: INSULIN REGULAR, HUMAN 100 UNITS/ML, 10 ML VIAL (novoLIN R) SUBCUT PRN ×3 (06:22→17:55)
[2017-10-14] MEDS: MUPIROCIN 2% TOPICAL OINTMENT 22 GM NS SCH ×2 (09:13→20:40)
[2017-10-14] MEDS: PANTOPRAZOLE SODIUM 40 MG TAB PO SCH (09:14)
[2017-10-14] MEDS: CARVEDILOL 6.25 MG TABLET (COREG) PO SCH ×2 (09:14→20:13)
[2017-10-14] MEDS: buPROPion HCL 150 MG XL TAB PO SCH (09:15)
[2017-10-14] MEDS: ENALAPRIL MALEATE 10 MG TABLET (VASOTEC) PO SCH ×2 (09:15→20:41)
[2017-10-14] MEDS: HEPARIN SODIUM,PORCINE 5000 UNITS/ML VIAL SUBCUT SCH ×2 (09:16→20:18)
[2017-10-14] MEDS ORDERED: LORazepam 2 MG/ML VIAL IVP ONE (11:00)
[2017-10-14] MEDS: LINEZOLID 300 ML IV SCH ×2 (12:21→20:19)
[2017-10-14] MEDS: HALOPERIDOL LACTATE 5 MG/ML VIAL IVP PRN ×4 (16:40→22:11)
[2017-10-15] VITALS (23 sets, daily range): BP systolic 97–144
[2017-10-15] MEDS: HALOPERIDOL LACTATE 5 MG/ML VIAL IVP PRN ×3 (00:45→23:14)
[2017-10-15] MEDS: PIPERACILLIN/TAZO 2.25G/DEX-IS 50 ML IV SCH ×5 (00:47→23:12)
[2017-10-15] MEDS: INSULIN REGULAR, HUMAN 100 UNITS/ML, 10 ML VIAL (novoLIN R) SUBCUT PRN ×3 (00:53→23:21)
[2017-10-15] MEDS: IPRATROPIUM BROM 0.5 MG/2.5 ML VIAL.NEB (ATROVENT) INH SCH ×4 (01:00→19:00)
[2017-10-15] MEDS: LevALBUTEROL HCL 1.25 MG/0.5 ML *CONC.* VIAL.NEB (XOPENEX CONC.) INH SCH ×4 (01:00→19:00)
[2017-10-15] MEDS: methylPREDNISolone SOD SUCC 40 MG/ML VIAL IVP SCH ×3 (05:34→21:15)
[2017-10-15] MEDS: LEVOTHYROXINE SODIUM 0.025 MG TABLET PO SCH (06:18)
[2017-10-15 06:34] LABS: ALANINE AMINOTRANSFERASE 345 U/L (12-78); ALBUMIN 2.3 g/dL (3.4-4.8); ASPARTATE AMINOTRANSFERASE 108 U/L (10-37); CALCIUM 9.3 mg/dL (8.4-11.0); CHLORIDE 102 mmol/L (98-107); CREATININE 1.34 mg/dL (0.55-1.30); GLUCOSE 196 mg/dL (70-99); POTASSIUM 4.3 mmol/L (3.5-5.1); SODIUM SERUM 133 mmol/L (136-145); TOTAL BILIRUBIN 0.6 mg/dL (0.0-1.0); UREA NITROGEN, BLOOD 46 mg/dL (8-21)
[2017-10-15 06:47] LABS: BASOPHILS # (AUTO) 0.1 K/uL (0.0-0.2); BASOPHILS % (AUTO) 0.5 % (0.0-2.0); HEMATOCRIT 33.1 % (36-48); HEMOGLOBIN 10.5 g/dL (12.0-16.0); LYMPHOCYTES # (AUTO) 0.4 K/uL (1.0-5.5); LYMPHOCYTES % (AUTO) 2.7 % (20.5-51.5); MEAN CORPUSCULAR HEMOGLOBIN 29 pg (27-31); MEAN CORPUSCULAR HGB CONC 32 % (32-36); MEAN CORPUSCULAR VOLUME 90 fL (79.0-98.0); MONOCYTES # (AUTO) 0.7 K/uL (0.0-1.0); MONOCYTES % (AUTO) 4.3 % (1.7-9.3); NEUTROPHILS # (AUTO) 15.3 K/uL (1.8-7.7); NEUTROPHILS % (AUTO) 92.5 % (40.0-70.0); PLATELET COUNT (AUTO) 249 K/uL (130-430); RED BLOOD CELL COUNT(AUTO) 3.67 MIL/uL (4.2-6.2); RED CELL DISTRIBUTION WIDTH 15.7 % (9.0-15.0); WHITE BLOOD COUNT (AUTO) 16.5 K/uL (4.8-10.8)
[2017-10-15 07:38] LABS: GFR AFRICAN AMERICAN 52 mL/min (>90)
[2017-10-15 07:39] LABS: ANION GAP < 3 (5-15)
[2017-10-15] MEDS: LINEZOLID 300 ML IV SCH ×2 (08:38→20:26)
[2017-10-15] MEDS: HEPARIN SODIUM,PORCINE 5000 UNITS/ML VIAL SUBCUT SCH ×2 (08:38→20:33)
[2017-10-15] MEDS: MUPIROCIN 2% TOPICAL OINTMENT 22 GM NS SCH ×2 (08:40→20:30)
[2017-10-15] MEDS: CARVEDILOL 6.25 MG TABLET (COREG) PO SCH ×2 (08:49→20:29)
[2017-10-15] MEDS: PANTOPRAZOLE SODIUM 40 MG TAB PO SCH (08:50)
[2017-10-15] MEDS: ENALAPRIL MALEATE 10 MG TABLET (VASOTEC) PO SCH ×2 (08:50→20:28)
[2017-10-15] MEDS: buPROPion HCL 150 MG XL TAB PO SCH (08:51)
[2017-10-16] VITALS (14 sets, daily range): BP systolic 109–138
[2017-10-16] MEDS: ZOLPIDEM TARTRATE 5 MG TABLET PO PRN (00:29)
[2017-10-16] MEDS: HALOPERIDOL LACTATE 5 MG/ML VIAL IVP PRN (00:31)
[2017-10-16] MEDS: LevALBUTEROL HCL 1.25 MG/0.5 ML *CONC.* VIAL.NEB (XOPENEX CONC.) INH SCH ×4 (00:58→19:00)
[2017-10-16] MEDS: IPRATROPIUM BROM 0.5 MG/2.5 ML VIAL.NEB (ATROVENT) INH SCH ×4 (00:58→19:00)
[2017-10-16] MEDS: PIPERACILLIN/TAZO 2.25G/DEX-IS 50 ML IV SCH ×4 (05:12→23:29)
[2017-10-16] MEDS: methylPREDNISolone SOD SUCC 40 MG/ML VIAL IVP SCH ×2 (05:12→20:28)
[2017-10-16] MEDS: LEVOTHYROXINE SODIUM 0.025 MG TABLET PO SCH (06:06)
[2017-10-16 07:01] LABS: HEMATOCRIT 35.8 % (36-48); HEMOGLOBIN 11.5 g/dL (12.0-16.0); LYMPHOCYTES # (AUTO) 0.4 K/uL (1.0-5.5); LYMPHOCYTES % (AUTO) 2.8 % (20.5-51.5); MEAN CORPUSCULAR HEMOGLOBIN 29 pg (27-31); MEAN CORPUSCULAR HGB CONC 32 % (32-36); MEAN CORPUSCULAR VOLUME 90 fL (79.0-98.0); MONOCYTES # (AUTO) 0.6 K/uL (0.0-1.0); MONOCYTES % (AUTO) 4.2 % (1.7-9.3); NEUTROPHILS # (AUTO) 13.5 K/uL (1.8-7.7); PLATELET COUNT (AUTO) 284 K/uL (130-430); RED BLOOD CELL COUNT(AUTO) 3.98 MIL/uL (4.2-6.2); RED CELL DISTRIBUTION WIDTH 15.4 % (9.0-15.0); WHITE BLOOD COUNT (AUTO) 14.5 K/uL (4.8-10.8)
[2017-10-16 07:05] LABS: ALBUMIN 2.3 g/dL (3.4-4.8); CALCIUM 9.6 mg/dL (8.4-11.0); CREATININE 1.07 mg/dL (0.55-1.30); POTASSIUM 4.1 mmol/L (3.5-5.1); TOTAL BILIRUBIN 0.6 mg/dL (0.0-1.0)
[2017-10-16] MEDS: MUPIROCIN 2% TOPICAL OINTMENT 22 GM NS SCH ×2 (08:57→20:28)
[2017-10-16] MEDS: PANTOPRAZOLE SODIUM 40 MG TAB PO SCH (08:59)
[2017-10-16] MEDS: buPROPion HCL 150 MG XL TAB PO SCH (08:59)
[2017-10-16] MEDS: HEPARIN SODIUM,PORCINE 5000 UNITS/ML VIAL SUBCUT SCH ×2 (08:59→20:41)
[2017-10-16] MEDS: CARVEDILOL 6.25 MG TABLET (COREG) PO SCH ×2 (09:00→20:38)
[2017-10-16] MEDS: ENALAPRIL MALEATE 10 MG TABLET (VASOTEC) PO SCH ×2 (09:00→20:38)
[2017-10-16] MEDS: LINEZOLID 300 ML IV SCH ×2 (10:26→20:34)
[2017-10-16] MEDS: INSULIN REGULAR, HUMAN 100 UNITS/ML, 10 ML VIAL (novoLIN R) SUBCUT PRN ×2 (13:18→18:30)
[2017-10-16] MEDS: ACETAMINOPHEN 325 MG TABLET PO PRN (20:29)
[2017-10-16] MEDS: HYDROcodone/ACETAMIN 10-325 MG TAB PO PRN (22:23)
[2017-10-16] MEDS: MORPHINE 4 MG/ML INJ. SYRINGE IVP PRN (23:31)
[2017-10-17] VITALS (8 sets, daily range): BP systolic 122–147
[2017-10-17] MEDS: IPRATROPIUM BROM 0.5 MG/2.5 ML VIAL.NEB (ATROVENT) INH SCH ×4 (01:00→19:59)
[2017-10-17] MEDS: LevALBUTEROL HCL 1.25 MG/0.5 ML *CONC.* VIAL.NEB (XOPENEX CONC.) INH SCH ×4 (01:00→19:59)
[2017-10-17] MEDS: PIPERACILLIN/TAZO 2.25G/DEX-IS 50 ML IV SCH (05:02)
[2017-10-17] MEDS: INSULIN REGULAR, HUMAN 100 UNITS/ML, 10 ML VIAL (novoLIN R) SUBCUT PRN ×4 (05:07→23:42)
[2017-10-17] MEDS: LEVOTHYROXINE SODIUM 0.025 MG TABLET PO SCH (06:00)
[2017-10-17] MEDS: MUPIROCIN 2% TOPICAL OINTMENT 22 GM NS SCH ×2 (09:50→20:14)
[2017-10-17] MEDS: LINEZOLID 300 ML IV SCH ×2 (09:50→20:09)
[2017-10-17] MEDS: methylPREDNISolone SOD SUCC 40 MG/ML VIAL IVP SCH ×2 (09:50→20:09)
[2017-10-17] MEDS: CARVEDILOL 6.25 MG TABLET (COREG) PO SCH ×2 (09:51→20:15)
[2017-10-17] MEDS: PANTOPRAZOLE SODIUM 40 MG TAB PO SCH (09:51)
[2017-10-17] MEDS: buPROPion HCL 150 MG XL TAB PO SCH (09:52)
[2017-10-17] MEDS: ENALAPRIL MALEATE 10 MG TABLET (VASOTEC) PO SCH ×2 (09:52→20:15)
[2017-10-17] MEDS: HEPARIN SODIUM,PORCINE 5000 UNITS/ML VIAL SUBCUT SCH ×2 (09:53→20:13)
[2017-10-17 10:18] LABS: BASOPHILS # (AUTO) 0.1 K/uL (0.0-0.2); BASOPHILS % (AUTO) 0.4 % (0.0-2.0); HEMATOCRIT 37.3 % (36-48); HEMOGLOBIN 11.9 g/dL (12.0-16.0); LYMPHOCYTES # (AUTO) 0.6 K/uL (1.0-5.5); LYMPHOCYTES % (AUTO) 3.8 % (20.5-51.5); MEAN CORPUSCULAR HEMOGLOBIN 29 pg (27-31); MEAN CORPUSCULAR HGB CONC 32 % (32-36); MEAN CORPUSCULAR VOLUME 89 fL (79.0-98.0); MONOCYTES # (AUTO) 0.8 K/uL (0.0-1.0); MONOCYTES % (AUTO) 5.4 % (1.7-9.3); NEUTROPHILS # (AUTO) 14.2 K/uL (1.8-7.7); NEUTROPHILS % (AUTO) 90.4 % (40.0-70.0); PLATELET COUNT (AUTO) 343 K/uL (130-430); RED BLOOD CELL COUNT(AUTO) 4.18 MIL/uL (4.2-6.2); RED CELL DISTRIBUTION WIDTH 15.2 % (9.0-15.0); WHITE BLOOD COUNT (AUTO) 15.7 K/uL (4.8-10.8)
[2017-10-17 10:34] LABS: ALBUMIN 2.4 g/dL (3.4-4.8); CALCIUM 9.4 mg/dL (8.4-11.0); CREATININE 0.96 mg/dL (0.55-1.30); POTASSIUM 4.1 mmol/L (3.5-5.1); TOTAL BILIRUBIN 0.9 mg/dL (0.0-1.0)
[2017-10-17] MEDS: cefTRIAXone 1 GM in D5W 50 ML IV SCH (13:19)
[2017-10-17] MEDS: ALBUTEROL SULFATE 0.083% 2.5 MG/3 ML VIAL.NEB INH PRN (16:05)
[2017-10-17] MEDS: IPRATROPIUM BROM 0.5 MG/2.5 ML VIAL.NEB (ATROVENT) INH PRN (16:06)
[2017-10-17] MEDS: HYDROcodone/ACETAMIN 10-325 MG TAB PO PRN (22:13)
[2017-10-17] MEDS: MORPHINE 4 MG/ML INJ. SYRINGE IVP PRN (23:25)
[2017-10-18] MEDS: LevALBUTEROL HCL 1.25 MG/0.5 ML *CONC.* VIAL.NEB (XOPENEX CONC.) INH SCH ×4 (01:30→19:47)
[2017-10-18] MEDS: IPRATROPIUM BROM 0.5 MG/2.5 ML VIAL.NEB (ATROVENT) INH SCH ×4 (01:30→19:47)
[2017-10-18] MEDS: MORPHINE 4 MG/ML INJ. SYRINGE IVP PRN ×3 (03:42→20:49)
[2017-10-18] MEDS: LEVOTHYROXINE SODIUM 0.025 MG TABLET PO SCH (06:20)
[2017-10-18] MEDS: INSULIN REGULAR, HUMAN 100 UNITS/ML, 10 ML VIAL (novoLIN R) SUBCUT PRN ×3 (06:33→17:12)
[2017-10-18] MEDS: HYDROcodone/ACETAMIN 10-325 MG TAB PO PRN ×3 (06:39→21:49)
[2017-10-18 07:54] VITALS: BP_SYST 139
[2017-10-18] MEDS: cefTRIAXone 1 GM in D5W 50 ML IV SCH (09:43)
[2017-10-18] MEDS: LINEZOLID 300 ML IV SCH ×2 (09:43→20:51)
[2017-10-18] MEDS: FUROSEMIDE 40 MG TABLET PO SCH (09:44)
[2017-10-18] MEDS: methylPREDNISolone SOD SUCC 40 MG/ML VIAL IVP SCH (09:44)
[2017-10-18] MEDS: PANTOPRAZOLE SODIUM 40 MG TAB PO SCH (09:44)
[2017-10-18] MEDS: buPROPion HCL 150 MG XL TAB PO SCH (09:44)
[2017-10-18] MEDS: ENALAPRIL MALEATE 10 MG TABLET (VASOTEC) PO SCH ×2 (09:45→20:51)
[2017-10-18] MEDS: CARVEDILOL 6.25 MG TABLET (COREG) PO SCH ×2 (09:45→20:48)
[2017-10-18] MEDS: HEPARIN SODIUM,PORCINE 5000 UNITS/ML VIAL SUBCUT SCH ×2 (09:50→20:43)
[2017-10-18] MEDS: MUPIROCIN 2% TOPICAL OINTMENT 22 GM NS SCH ×2 (11:41→20:52)
[2017-10-18 13:01] VITALS: BP_SYST 139
[2017-10-18 16:38] VITALS: BP_SYST 132
[2017-10-18 19:15] VITALS: BP_SYST 143
[2017-10-18] MEDS: PREDNISONE 20 MG TABLET PO SCH (20:48)
[2017-10-18] MEDS: ZOLPIDEM TARTRATE 5 MG TABLET PO PRN (21:49)
[2017-10-19] MEDS: IPRATROPIUM BROM 0.5 MG/2.5 ML VIAL.NEB (ATROVENT) INH SCH ×3 (01:30→13:00)
[2017-10-19] MEDS: LevALBUTEROL HCL 1.25 MG/0.5 ML *CONC.* VIAL.NEB (XOPENEX CONC.) INH SCH ×3 (01:30→13:00)
[2017-10-19] MEDS: INSULIN REGULAR, HUMAN 100 UNITS/ML, 10 ML VIAL (novoLIN R) SUBCUT PRN ×2 (01:34→12:01)
[2017-10-19 01:44] VITALS: BP_SYST 144
[2017-10-19] MEDS: MORPHINE 4 MG/ML INJ. SYRINGE IVP PRN (05:11)
[2017-10-19] MEDS: HYDROcodone/ACETAMIN 10-325 MG TAB PO PRN (06:24)
[2017-10-19] MEDS: LEVOTHYROXINE SODIUM 0.025 MG TABLET PO SCH (06:27)
[2017-10-19 07:32] LABS: ALBUMIN 2.5 g/dL (3.4-4.8); CALCIUM 9.4 mg/dL (8.4-11.0); CREATININE 0.93 mg/dL (0.55-1.30); POTASSIUM 4.5 mmol/L (3.5-5.1); TOTAL BILIRUBIN 0.8 mg/dL (0.0-1.0)
[2017-10-19 07:52] VITALS: BP_SYST 142
[2017-10-19] MEDS: MUPIROCIN 2% TOPICAL OINTMENT 22 GM NS SCH (09:00)
[2017-10-19] MEDS ORDERED: ENALAPRIL MALEATE 5 MG TABLET (VASOTEC) PO SCH (09:00)
[2017-10-19] MEDS: cefTRIAXone 1 GM in D5W 50 ML IV SCH (09:08)
[2017-10-19] MEDS: LINEZOLID 300 ML IV SCH (09:09)
[2017-10-19] MEDS: buPROPion HCL 150 MG XL TAB PO SCH (09:09)
[2017-10-19] MEDS: CARVEDILOL 6.25 MG TABLET (COREG) PO SCH (09:09)
[2017-10-19] MEDS: PANTOPRAZOLE SODIUM 40 MG TAB PO SCH (09:10)
[2017-10-19] MEDS: PREDNISONE 20 MG TABLET PO SCH (09:10)
[2017-10-19] MEDS: FUROSEMIDE 40 MG TABLET PO SCH (09:11)
[2017-10-19] MEDS: HEPARIN SODIUM,PORCINE 5000 UNITS/ML VIAL SUBCUT SCH (09:15)
[2017-10-19] MEDS ORDERED: ALBMDI INH (10:05)
[2017-10-19] MEDS ORDERED: ASPI-1063 PO (10:06)
[2017-10-19] MEDS ORDERED: METH4TAB3 PO (10:06)
[2017-10-19] MEDS ORDERED: DOXY100T2 PO (10:06)
[2017-10-19 11:37] VITALS: BP_SYST 125
[2017-10-19 12:00] VITALS: BP_SYST 117
== END 2017-10-19 13:30 | disposition home health service (06) | DRG 720 ==
LOC: SED 00:11 → STU 03:36 → SIC 10-11 11:18 → STU 10-16 10:01
PROVIDERS: ADMIT Internal Medicine Hospice and Palliative Medicine; ATTEND Internal Medicine Hospice and Palliative Medicine
PROC: 02HV33Z Insertion of Infusion Device into Superior Vena Cava, Percutaneous Approach (ICD-10-PCS; principal; 2017-10-11)
PROC: B548ZZA Ultrasonography of Superior Vena Cava, Guidance (ICD-10-PCS; 2017-10-11)
DX: A41.9 Sepsis, unspecified organism (principal); I21.A1 Myocardial infarction type 2; J96.00 Acute respiratory failure, unspecified whether with hypoxia or hypercapnia; R65.21 Severe sepsis with septic shock; I50.43 Acute on chronic combined systolic (congestive) and diastolic (congestive) heart failure; G93.40 Encephalopathy, unspecified; J69.0 Pneumonitis due to inhalation of food and vomit; I13.0 Hypertensive heart and chronic kidney disease with heart failure and stage 1 through stage 4 chronic kidney disease, or unspecified chronic kidney disease; D64.9 Anemia, unspecified; K75.89 Other specified inflammatory liver diseases; J44.1 Chronic obstructive pulmonary disease with (acute) exacerbation; E03.9 Hypothyroidism, unspecified; E87.1 Hypo-osmolality and hyponatremia; N18.9 Chronic kidney disease, unspecified; N17.9 Acute kidney failure, unspecified; I42.7 Cardiomyopathy due to drug and external agent; J44.0 Chronic obstructive pulmonary disease with (acute) lower respiratory infection; E11.22 Type 2 diabetes mellitus with diabetic chronic kidney disease; I42.0 Dilated cardiomyopathy; F17.200 Nicotine dependence, unspecified, uncomplicated; T43.625A Adverse effect of amphetamines, initial encounter; Z86.711 Personal history of pulmonary embolism; Z22.322 Carrier or suspected carrier of Methicillin resistant Staphylococcus aureus; Y92.89 Other specified places as the place of occurrence of the external cause; Z86.74 Personal history of sudden cardiac arrest; Z80.3 Family history of malignant neoplasm of breast; Z91.018 Allergy to other foods; Z79.899 Other long term (current) drug therapy; Z71.6 Tobacco abuse counseling
CPT/HCPCS: 36415; 36600; 71045; 71250-TC; 76700-TC; 80053; 80307; 81003; 82803-TC; 82962; 83605; 83880; 84484; 85025; 85610-TC; 85651-TC; 85730-TC; 86708; 86738; 86803; 87040-TC; 87081; 87086; 93005; 94640; 94760; 96374; 97110-GP; 97116-GP; 97530-GP; 99285; A6209; C1751; J0696; J1030; J1630; J1644; J1815; J1940; J2020; J2060; J2270; J2405; J2543; J2765; J7040; J7050; J7060; J7512; J7612; J7613